=== PATIENT | female | born 1945 | race Caucasian/White ===

== ENCOUNTER 2017-12-22 18:04 | Emergency (ER) | payer OTHER, MEDICARE ==
[~2017-12-22] VITALS: Ht 162.6 cm; Wt 72.6 kg
[~2017-12-22 18:04] MED LIST: ACCUPRIL PO; AMITRIPTYLINE H10 M1 PO; ANTACID650 MG PO; ASPIRIN325 PO; COUMADIN 2 MG TA2 M1 PO; DEPAKOTE 250MG250 M1 PO; EVOXAC30 MG PO; FOLIC ACID1 MG PO; LEVOTHYROXIN0.125 M1 PO; LOPRESSOR 12.12.5 MG PO; LOPRESSOR25 PO; LOVENOX SC; SERTRALINE HCL50 MG PO; SIMVASTATIN20 MG PO; UNICOMPLEX M TA1 TA1 PO; VITAMIN D1000 UNI1 PO
[2017-12-22 18:57] LABS: HEMATOCRIT 35.6 % (37.0-47.0); HEMOGLOBIN 12.1 gm/dL (12.0-15.0); MCH 32.3 pg (26.0-34.0); MCV 95.1 fL (80.0-100.0); PLATELET COUNT 138 thou/uL (150-400); RBC 3.74 mil/uL (4.20-5.00); RDW 14.4 % (10.5-14.5); WBC 4.2 thou/uL (4.0-11.0)
[2017-12-22 19:04] LABS: CALCIUM 9.4 mg/dL (8.5-10.1); CREATININE 2.3 mg/dL (0.6-1.0)
[2017-12-22] MEDS ORDERED: KEPPRA 500 MG500 M1 PO (19:20)
[2017-12-22 19:21] LABS: ABSOLUTE NEUTROPHILS 2.1 thou/uL (1.4-8.2); ANISOCYTOSIS 2+; POLYCHROMASIA OCCASIONAL
[2017-12-22] MEDS ORDERED: LIPITOR 20 MG T20 M1 PO (19:21)
[2017-12-22] MEDS ORDERED: SODIUM BICARBO650 M3 PO (19:21)
[2017-12-22] MEDS ORDERED: ALLOPURINOL 10100 M1 PO (19:21)
[2017-12-22 20:02] VITALS: BP 144/57
[2017-12-30] MEDS ORDERED: SYNTHROID75 MCG PO (13:43)
== END 2017-12-22 20:10 | disposition home or self-care (01) ==
LOC: ER 18:04
PROVIDERS: Emergency Medicine
DX: R51 Headache (principal); I10 Essential (primary) hypertension; E03.9 Hypothyroidism, unspecified; E78.5 Hyperlipidemia, unspecified; F41.9 Anxiety disorder, unspecified; Z85.42 Personal history of malignant neoplasm of other parts of uterus; Z88.0 Allergy status to penicillin; Z88.5 Allergy status to narcotic agent; Z90.710 Acquired absence of both cervix and uterus

== ENCOUNTER → 2018-01-11 | Outpatient (CLI) | payer OTHER, MEDICARE ==
[~2018-01-11] VITALS: Ht 165.1 cm; Wt 72.6 kg
[~2018-01-11] MED LIST changes: +ALLOPURINOL 10100 M1 PO; +KEPPRA 500 MG500 M1 PO; +LIPITOR 20 MG T20 M1 PO; +SODIUM BICARBO650 M3 PO; +SYNTHROID75 MCG PO
--- NOTE | ~2018-01-11 | S ---
[facility] [place] [address] SURGICAL PATH RPT PROCEDURE Name: GODWINRAFAEL DAV Room #: REG JB LunsfordRoxannJocy.#: [id number] Admission: 01/11/18 Date of : 49 Discharge: Report #: [id number] Path Case #: [id number] PATHOLOGY REPORT COLLECTION DATE: 01/11/2018 RECEIVED DATE: 01/11/2018 SUBMITTING PHYS: Dr. Chuy Worley OTHER PHYS: Dr. Unique Romero SPECIMEN(S) RECEIVED: A.Random colon biopsies * * * * * * * * * * * * FINAL DIAGNOSIS: Large intestine mucosa, random, rule out microscopic colitis, endoscopic biopsy: - Nonspecific changes (please see comment). - Negative for active colitis, dysplasia or malignancy. (IUV:srini; 01/12/2018) COMMENT: Examination shows mild increase in lamina propria cellularity with a rare focus of cryptitis. The lamina propria is comprised of lymphocytes, plasma cells, as well as few eosinophils. Thickening of subepithelial collagen layer, or increase in intraepithelial lymphocytes is not identified. Lymphoepithelial lesions are not present. There are no crypt abscesses, granulomata, viral inclusions or parasitic organisms present as well. Overall findings are nonspecific and may be related to bowel preparation, or a resolved episode of colitis. There is no crypt loss identified as well. Findings therefore are nonspecific. Please correlate clinically and follow-up as indicated. Co-review: Dr. Darlin Rojas (hematopathologist) (IUV:srini; 01/12/2018) PATHOLOGIST: Jennifer Bello M.D. REPORT ELECTRONICALLY SIGNED BY: Jennifer Bello M.D. DATE/TIME: 01/12/2018 15:00 * * * * * * * * * * * * GROSS PATHOLOGY: Received in formalin labeled "Rafael Langford, random colon biopsies rule out microscopic colitis" and consists of 4 do tissue fragments ranging in size from 0.2 cm-0.4 cm. They are entirely submitted as A1. (HANSA; 01/11/2018) [address] [address] SURGICAL PATH RPT PROCEDURE Name: RAFAEL LANGFORD Room #: REG JB Giles#: [id number] Admission: 01/11/18 Date of : 49 Discharge: Report #: [id number] Path Case #: [id number] CLINICAL HISTORY: Change in bowel habits, family history colon cancer, hemorrhoids, diverticulosis INITIAL CPT CODE(S): A; 85431 Professional services performed by [facility] at [address], [place] [address] Technical services performed by [facility] at [address] [place] [address], [place] [address]. [facility] [address] [place] [address] PHONE: [phone] DIRECTOR: Julian Fisher M.D. * * * END OF REPORT * * *
== END | disposition home or self-care (01) ==
LOC: GI 06:55
DX: K57.30 Diverticulosis of large intestine without perforation or abscess without bleeding (principal); K64.8 Other hemorrhoids; I12.9 Hypertensive chronic kidney disease with stage 1 through stage 4 chronic kidney disease, or unspecified chronic kidney disease; N18.4 Chronic kidney disease, stage 4 (severe); I25.10 Atherosclerotic heart disease of native coronary artery without angina pectoris; E78.5 Hyperlipidemia, unspecified; E03.9 Hypothyroidism, unspecified; F41.9 Anxiety disorder, unspecified; Z79.82 Long term (current) use of aspirin; Z86.73 Personal history of transient ischemic attack (TIA), and cerebral infarction without residual deficits; Z85.42 Personal history of malignant neoplasm of other parts of uterus; Z88.0 Allergy status to penicillin; Z88.8 Allergy status to other drugs, medicaments and biological substances; Z90.710 Acquired absence of both cervix and uterus; Z98.890 Other specified postprocedural states; Z79.899 Other long term (current) drug therapy
CPT/HCPCS: 62110; 62900

== ENCOUNTER → 2018-08-06 | Outpatient (CLI) | payer OTHER, MEDICARE | LOC: MRI 13:34 | DX: I63.50 Cerebral infarction due to unspecified occlusion or stenosis of unspecified cerebral artery (principal); G31.9 Degenerative disease of nervous system, unspecified; G44.001 Cluster headache syndrome, unspecified, intractable; G62.9 Polyneuropathy, unspecified; R56.9 Unspecified convulsions ==

== ENCOUNTER 2019-07-25 18:11 | Inpatient (IN) | payer OTHER, MEDICARE ==
[~2019-07-25] VITALS: Ht 162.6 cm; Wt 70.3 kg
[2019-07-25 18:12] VITALS: BP 92/65
[2019-07-25 18:58] LABS: URINE BILIRUBIN NEGATIVE (Negative); URINE BLOOD 2+ (Negative); URINE CLARITY CLEAR; URINE COLOR YELLOW; URINE GLUCOSE-RANDOM* NEGATIVE (Negative); URINE KETONES NEGATIVE (Negative); URINE NITRITE-REFLEX NEGATIVE (Negative); URINE PROTEIN (DIPSTICK) 1+ (Negative); URINE UROBILINOGEN 0.2 E.U./dl (0.2-1.0)
[2019-07-25 18:59] LABS: URINE LEUKOCYTES-REFLEX 2+ (Negative)
[2019-07-25 19:12] LABS: BACTERIA-REFLEX None Seen /HPF (None Seen); CASTS None Seen /LPF (None Seen); CRYSTALS None Seen /LPF (None Seen); SQUAMOUS >10 Many /LPF (0-3); URINE RBC 3-10 Few /HPF (0-2); URINE WBC-REFLEX >25 Many /HPF (0-5); WBC CLUMPS Few (None Seen)
[2019-07-25 19:34] LABS: HEMATOCRIT 33.8 % (37.0-47.0); HEMOGLOBIN 11.1 gm/dL (12.0-15.0); MCH 32.2 pg (26.0-34.0); MCHC 32.7 g/dL (28.0-37.0); MCV 98.4 fL (80.0-100.0); PLATELET COUNT 178 thou/uL (150-400); RBC 3.44 mil/uL (4.20-5.00); RDW 14.6 % (10.5-14.5); WBC 9.8 thou/uL (4.0-11.0)
[2019-07-25 19:38] LABS: CALCIUM 9.5 mg/dL (8.5-10.1); CREATININE 3.6 mg/dL (0.6-1.0); POTASSIUM 4.3 mmol/L (3.5-5.1)
[2019-07-25 19:44] LABS: ALBUMIN 2.8 g/dL (3.4-5.0); TOTAL BILIRUBIN 0.5 mg/dL (<0.1-1.0); TOTAL PROTEIN 7.3 g/dL (6.4-8.2)
[2019-07-25 19:51] LABS: ABSOLUTE NEUTROPHILS 8.3 thou/uL (1.4-8.2); ANISOCYTOSIS 1+
[2019-07-25 21:31] VITALS: BP 136/59
[2019-07-25] MEDS ORDERED: TIROSINT88 MCG PO ×2 (21:34)
[2019-07-25] MEDS ORDERED: RENVELA800 MG PO ×2 (21:35)
[2019-07-25] MEDS ORDERED: NORVASC5 MG PO ×2 (21:35)
[2019-07-25] MEDS ORDERED: IRON325 PO ×2 (21:35)
[2019-07-25] MEDS ORDERED: VITAMIN B-12500 MCG PO ×2 (21:35)
[2019-07-25] MEDS ORDERED: GABAPENTIN 100100 MG PO ×2 (21:36)
--- NOTE | 2019-07-25 21:44 | NUR ---
ED CALLED TO GIVE REPORT TO INPATIENT NURSE. CIRILO STATED SHE IS NOT READY TO RECEIVE REPORT AND WILL CALL BACK IN 10 MINUTES
[2019-07-25 22:30] VITALS: BP 147/56
--- NOTE | 2019-07-26 03:33 | NUR ---
PT ARRIVED ON THE UNIT AND ORIENTED TO ROOM. DENIES PAIN, N AND V. A&OX4 AT THIS SHIFT. UP WITH SBA TO THE BATHROOM. IV INTACT IN RT A/C. CALLED ONCALL RETAIL SALES DIRECTOR AND FLUIDS STARTED. FALL PREC IN PLACE AND WILL CONT TO MONITOR TILL EOS
[2019-07-26 03:55] VITALS: BP 141/61
[2019-07-26 07:45] VITALS: BP 144/53
--- NOTE | 2019-07-26 08:01 | EKG ---
[address] [address] ELECTROCARDIOGRAM REPORT Name: RAFAEL CONNELLY Room #: 444-P ADM IN M.R.#: [id number] Admission: 07/25/19 Attend Phys: Juan Wallace MD Discharge: Date of : 49 Report #: [id number] THIS REPORT FOR: //name// [facility] ED Test Date: 2019-07-25 Test Time: 19:04:42 Pat Name: RAFAEL CONNELLY Department: Room: 444 Gender: F Database Specialist: KRISTINE : 1945 Requested By: Constantino Espinoza Order Number: [id number] MD: Duke Ellis Measurements Intervals [place] Rate: 90 P: 58 LA: 149 QRS: 38 QRSD: 92 T: 44 QT: 352 QTc: 431 Interpretive Statements Sinus rhythm Normal tracing Compared to ECG 02/09/2010 13:18:12 No significant changes Electronically Signed On 07-26-2019 8:00:59 CDT by Duke Ellis [email or web address] <ELECTRONICALLY SIGNED> By: Duke Ellis MD, [facility] 07/26/19 0800 03 03 Duke Ellis MD, [facility] /EPI
[2019-07-26 09:29] LABS: HEMATOCRIT 33.3 % (37.0-47.0); HEMOGLOBIN 10.8 gm/dL (12.0-15.0); MCH 32.2 pg (26.0-34.0); MCHC 32.5 g/dL (28.0-37.0); MCV 99.1 fL (80.0-100.0); RBC 3.36 mil/uL (4.20-5.00); RDW 14.9 % (10.5-14.5); WBC 8.4 thou/uL (4.0-11.0)
[2019-07-26 09:59] LABS: ALBUMIN 2.6 g/dL (3.4-5.0); CALCIUM 8.6 mg/dL (8.5-10.1); CREATININE 3.2 mg/dL (0.6-1.0); MAGNESIUM 2.2 mg/dL (1.8-2.4); TOTAL BILIRUBIN 0.4 mg/dL (<0.1-1.0); TOTAL PROTEIN 6.1 g/dL (6.4-8.2)
[2019-07-26 16:15] VITALS: BP 13/74
[2019-07-26 16:30] VITALS: BP 131/74
--- NOTE | 2019-07-26 16:34 | NUR ---
ASSESSMENT-PT LIVES AT HOME ALONE. SHE HAS A SON CLOSE TO [facility] AND A DTR IN [place]. 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 SHE DOES NOT DRIVE. SHE HAS A FRIEND THAT TAKES HER TO THE GROCERY STORE ON [address] AND A FRIEND OF HER SON'S THAT TRANSPORTS HER TO THE DOCTOR'S APPTS ABLE. LAUNDRY IS LOCATED IN THE BASEMENT WITH A RAIL DOWN TO HOLD ONTO. PT HAS NOT HAD ANY HH BUT HAS BEEN TO REHB HERE AND TO OUTPT THERAPY IN THE PAST. FOLLOWING TO ASSIST WITH DC PLANNING.
--- NOTE | 2019-07-26 18:25 | NUR ---
Assumed patient care at 0715. Patient is alert et oriented x's 4, is up with stand-by assist. Patient went for all walk in the hallway with CPA and with PT. Vital signs have been stable. Bruit ausculatated in left arm fistula. Patient has been compliant with her medications and treatments; she has been pleasant and cooperative. Appetite and fluid intake has been adequate. Will continue to monitor.
[2019-07-26 19:31] VITALS: BP 143/56
[2019-07-27 03:37] VITALS: BP 123/52
--- NOTE | 2019-07-27 03:39 | NUR ---
PT IS O/A X4.PT IS SBA .PT IS HARD OF HEARING.PT HAS AN AV FISTULA ON THE LT ARM.PT DENIES PAINS AND N/V.IV ACCESS ON RT HAND.STAFF CONTINUED POC TILL EOS
[2019-07-27 05:10] LABS: HEMATOCRIT 28.7 % (37.0-47.0); HEMOGLOBIN 9.5 gm/dL (12.0-15.0); MCH 32.3 pg (26.0-34.0); MCV 97.9 fL (80.0-100.0); RBC 2.93 mil/uL (4.20-5.00); RDW 14.6 % (10.5-14.5); WBC 6.6 thou/uL (4.0-11.0)
[2019-07-27 05:22] LABS: ALBUMIN 2.3 g/dL (3.4-5.0); CALCIUM 8.3 mg/dL (8.5-10.1); PHOSPHORUS 3.5 mg/dL (2.5-4.9); POTASSIUM 4.5 mmol/L (3.5-5.1)
[2019-07-27 08:17] VITALS: BP 132/63
--- NOTE | 2019-07-27 09:17 | HC ---
[facility] [place] [address] CONSULTATION Name: RAFAEL CONNELLY Room #: 444-P ADM IN M.R.#: [id number] Admission: 07/25/19 Attend Phys: Juan Wallace MD Discharge: Date of : 49 Report #: [id number] THIS REPORT FOR: //name// CC: Juan Romero REASON FOR CONSULTATION: Elevated creatinine. REASON FOR PRESENTATION: Fever. 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 She is being prepared for dialysis by her primary shotblast operator. She has an estimated GFR anywhere from 14-16 per her. She follows with ____ from another [facility]. She presented with fever that began about a week ago. This has been intermittent. She reported that her temperature was high as up as 102.2. Along with that, the patient has reported some nausea. No vomiting. She had no previous similar episodes. She had one time diarrhea. She presented for further evaluation and was found to have an elevated creatinine on her presentation. She tells me that her GFR has been in the 14-16 ratio. Most recently, her creatinine is 3.6. She does not recall her usual creatinine value, but as I have stated, the patient is known to have advanced chronic kidney disease and is being prepared for dialysis. She has a left-sided AV fistula. PAST MEDICAL HISTORY: 1. Alport syndrome. 2. End-stage renal disease. 3. Hypertension. 4. Status post left AV fistula. 5. Hysterectomy. 6. Hyperlipidemia. 7. Right corneal transplant. 8. CVA. 9. Hypothyroidism. 10. Uterine cancer. 11. Breast biopsy. 12. Lumbar diskectomy. MEDICATIONS: 1. Atorvastatin. 2. Folic acid. 3. Multivitamin. 4. Aspirin. 5. Keppra. 6. Levothyroxine. 7. Sodium bicarbonate. [facility] [address] [place] [address] CONSULTATION Name: GODWINCARLOSE DAV Room #: 444-P [facility] IN .R.#: [id number] Admission: 07/25/19 Attend Phys: Juan Wallace MD Discharge: Date of : 49 Report #: [id number] ALLERGIES: CODEINE, FLUOXETINE, PENICILLIN. FAMILY HISTORY: Her son has 2 kidney transplants due to alcohol syndrome. SOCIAL HISTORY: She denies drug or alcohol abuse. 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 REVIEW OF SYSTEMS: GENERAL: Significant for fever. CARDIOVASCULAR: No chest pain or palpitation. PULMONARY: No cough or hemoptysis. GASTROINTESTINAL: As per the history of present illness. GENITOURINARY: No frequency, no urgency. MUSCULOSKELETAL: Occasional back pain and myalgias. PHYSICAL EXAMINATION: GENERAL: The patient is alert, oriented, in no apparent distress. VITAL SIGNS: Temperature 37.6, blood pressure is 141/61. HEAD AND NECK: No jugular venous distention. CHEST: No crackles. CARDIOVASCULAR: Regular, with no rubs detected. ABDOMEN: Soft, nontender, no hepatosplenomegaly. LOWER EXTREMITIES: No edema with intact peripheral pulses. UPPER EXTREMITIES: Left AV fistula present. LABORATORY VALUES: Reviewed. Sodium is 141, creatinine is 4.3, chloride is 105, BUN is 62, creatinine is 3.6. UA with +1 protein and blood, +2 leukocyte esterase plus significant white blood cell clumps and red blood cells. ASSESSMENT AND IMPRESSION: 1. Acute kidney injury. 2. Chronic kidney disease, being prepared for dialysis. 3. Alport syndrome. 4. Potential urinary tract infection. PLAN: 1. At this point, I would continue with the IV fluid. She is known to have end-stage renal disease and is being prepared for hemodialysis. I would like to obtain her values from her shotblast operator. 2. Treat her urinary tract infections. 3. Symptomatic treatment for the nausea and fever. 4. Follow cultures and adjust antibiotic. 5. Follow urine output. 6. Avoid nephrotoxins. 7. Watch blood pressure. 8. Watch electrolytes. [address] [address] CONSULTATION Name: RAFAEL CONNELLY Room #: 444-P [facility] IN M.R.#: [id number] Admission: 07/25/19 Attend Phys: Juan Wallace MD Discharge: Date of : 49 Report #: [id number] 9. Keep on the sodium bicarbonate for now. 10. We will continue to follow during her hospital stay. <ELECTRONICALLY SIGNED> By: Carlitos Prescott MD 07/27/19 0917 0834 0011 Carlitos Prescott MD /nt
--- NOTE | 2019-07-27 15:08 | NUR ---
Assumed patient care at 0715. Patient continues to have an IV in her right forearm with NS running at 100cc/hour. Patient has been up with stand-by assist, has urinated in the toilet several times during this shift. All vital signs have been stable but, she had a Temperature of 101.0 this am. She was given Tylenol 650mg ; this was effective as Temperature was re-checked with an oral reading of 98.6. Patient has denied any symptoms with this temperature. Recieved lab results from a urine culture with the following results: Mixed urogengenital gaby greater than 100,000 colony forming units per mL. Dr Bean notified. No new orders until results from culture and sensitivity are back. Will continue to monitor.
[2019-07-27 16:47] VITALS: BP 114/45
[2019-07-27 19:49] VITALS: BP 123/54
[2019-07-28 04:52] VITALS: BP 132/54
--- NOTE | 2019-07-28 05:17 | NUR ---
ASSUMED PT CARE @19:00.PT IS O/A X4.PT IS HARD OF HEARING WITH ELIANE HEARING AIDS.PT IS UP WITH SBA.PT DENIES N/V AND PAINS.PT HAS AV FISTULA ON LT ARM.IV ACCESS ON RH.PT HAS TEMP OF 100.2 THIS AM AND WAS GIVEN TYLENOL.CONTINUE POC TILL EOS
[2019-07-28 05:41] LABS: ALBUMIN 2.3 g/dL (3.4-5.0); CALCIUM 8.6 mg/dL (8.5-10.1); CREATININE 2.6 mg/dL (0.6-1.0); PHOSPHORUS 3.4 mg/dL (2.5-4.9); POTASSIUM 4.5 mmol/L (3.5-5.1)
[2019-07-28 08:58] VITALS: BP 131/77
[2019-07-28 16:59] VITALS: BP 118/50
--- NOTE | 2019-07-28 17:05 | NUR ---
CASE DISCUSSED WITH ATTENDING DR AND ID HAS BEEN CONSULTED TO SEE RELATED TO FEVERS. FOLLOWING.
--- NOTE | 2019-07-28 18:30 | NUR ---
PT ASSESSED AT START OF SHIFT. PT DENIES PAIN. AMBULATED IN THE HALLS W/ RECORDS ADMINISTRATOR AND DID WELL. NEEDS STANDBY WHEN OUT OF BED. STILL W/ LOW GRADE TEMP. DR. MAGUIRE IN AND ORDERED CT SCAN WHICH SHOWED DIVERTICULITIS W/ ABSCESS. NOTIFIED DR. MAGUIRE AND ORDERS NOTED. PT NPO NOW AND WILL BE SEEN BY DR. MORRISSEY IN THE AM.
[2019-07-28 20:06] VITALS: BP 137/60
--- NOTE | 2019-07-29 03:55 | NUR ---
PT WAS OBSERVED SITTING UP AT EDGE OF BED AT START OF SHIFT.PT DENIED PAIN SO FAR.PT STILL NPO AT THIS TIME.CONT ON IV ABX ORDERED.UP WITH SBA TO THE BR.L ARM FISTULA POSITIVE FOR THRILL AND BRUIT.ORAL CARE GIVEN.PT ABLE TO MAKE NEEEDS KNOWN.FALL PRECAUTIONS IN PLACE,CALL LIGHT WITHIN REACH.
[2019-07-29 05:01] VITALS: BP 135/68
[2019-07-29 05:09] LABS: HEMATOCRIT 31.8 % (37.0-47.0); HEMOGLOBIN 10.6 gm/dL (12.0-15.0); MCH 32.3 pg (26.0-34.0); MCHC 33.4 g/dL (28.0-37.0); MCV 96.8 fL (80.0-100.0); RBC 3.28 mil/uL (4.20-5.00); RDW 14.2 % (10.5-14.5)
[2019-07-29 05:52] LABS: ALBUMIN 2.3 g/dL (3.4-5.0); CALCIUM 8.9 mg/dL (8.5-10.1); CREATININE 2.6 mg/dL (0.6-1.0); PHOSPHORUS 3.6 mg/dL (2.5-4.9); POTASSIUM 4.3 mmol/L (3.5-5.1)
[2019-07-29 08:55] VITALS: BP 144/66
[2019-07-29 16:36] VITALS: BP 149/71
[2019-07-29 19:22] VITALS: BP 127/65
--- NOTE | 2019-07-29 19:31 | NUR ---
Assumed patient care at 0715. Patient has been NPO pending decision regarding how to address Diverticulitis with Abcess. Dr Mobley came to visit, told this nurse and patient that she can go on full liquids, to advance to solids as tolerated tomorrow. Patient's vital signs have been stable, LSCTA, BS x's 4 (she has had two "normal" bowel movements today, therefore she refused her 1500 Miralax). Patient has a new IV in the right wrist, as the previous IV went bad. Report given to Mary, on-coming RN. Patient has been tolerated fluids well.
--- NOTE | 2019-07-30 03:08 | NUR ---
ASSUMED CARE @1900 PT ASSESSED AT START SHIFT DENIES PAIN. IV INTACT IN RT HAND AND ABX INFUSING. PT UP WITH SBA TO THE BR. PT TEMP OF 99.9 TYLENOL GIVEN FOR LOW GRADE TEMP AND TEMP BACK TO 99.4. [facility] AND HAS HEARING AID. FALL PREC IN PLACE AND WILL CONT WITH POC TILL EOS
[2019-07-30 04:32] VITALS: BP 137/68
[2019-07-30 05:53] LABS: ALBUMIN 2.1 g/dL (3.4-5.0); CALCIUM 8.5 mg/dL (8.5-10.1); CREATININE 2.6 mg/dL (0.6-1.0); PHOSPHORUS 3.5 mg/dL (2.5-4.9); POTASSIUM 4.3 mmol/L (3.5-5.1)
[2019-07-30 08:15] VITALS: BP 143/76
[2019-07-30 16:00] VITALS: BP 124/61
--- NOTE | 2019-07-30 18:02 | NUR ---
Assessment completed.vss.pt in and out of bed to chair and bathroom with sba. Pt temp was elevated early this am and tylenol given as ordered with relief. Dr Bey and Sada here,no new order noted but Maida said pt was okay to dc home from his own stand point.Pt tolerated full liq and has moderate stool today.Will continue to monitor.
[2019-07-30 21:15] VITALS: BP 134/64
--- NOTE | 2019-07-31 00:22 | NUR ---
ASSUMED CARE OF PT @1900 PT ASSESSED AT START OF SHIFT A&OX4. ORAL TEMP OF 100 NOTED ADMINISTERED TYELNOL AND TEMP DOWN TO 99.4 WILL CONT TO MONITOR TEMP. PT STILL ON A FULL LIQUID DIET TOLERATED IT WELL AND WANTS TO KNOW WHEN DIET WILL BE ADVANCED. NEW ORDER PLACE TO ADVANCED DIET IN THE AM. UP WITH SBA TO THE BATHROOM. FALL PREC IN PLACE AND CALL LIGHT WITHIN REACH WILL CONT WITH POC TILL EOS.
[2019-07-31 05:00] VITALS: BP 128/59
[2019-07-31 06:04] LABS: ALBUMIN 2.3 g/dL (3.4-5.0); CALCIUM 8.4 mg/dL (8.5-10.1); CREATININE 2.5 mg/dL (0.6-1.0); PHOSPHORUS 3.6 mg/dL (2.5-4.9); POTASSIUM 4.4 mmol/L (3.5-5.1)
[2019-07-31 07:30] VITALS: BP 142/68
[2019-07-31 15:26] VITALS: BP 109/62
--- NOTE | 2019-07-31 15:51 | NUR ---
ASSUMED CARE OF PT AT SHIFT CHANGE. ASSESSMENT CHARTED. MEDS GIVEN PER DEC. PT ALERT AND ORIENTED, DENIES PAIN. UP SBA TO BATHROOM TOLERATING WELL. O2 SATS WNL ON ROOM AIR. DENIES ABDOMINAL PAIN WHEN ASKED/ASSESSED. PT EXPRESSING THAT SHE FEELS READY TO GO HOME. IV ABX ADMINISTERED AT CHARTED. APPETITE ADEQUATE, VSS WITH NO FEVER THROUGHOUT DAY. PLAN IS TO DC WHEN ID CHANGES IV ABX TO PO AND WHEN ALL CONSULTED PHYSICIANS SIGN OFF ACCORDING TO DR DUENAS. PT DENIES NEEDS AT THIS TIME. WILL CONT TO MONITOR AND FOLLOW POC.
[2019-07-31 19:09] VITALS: BP 126/59
[2019-08-01 07:15] VITALS: BP 135/64
--- NOTE | 2019-08-01 07:41 | NUR ---
PT AMBULATING TO BATHROOM WITH STANDBY ASSIST AND IS TOLERATING WELL. DENIES PAIN. POSSIBLE DISCHARGE HOME 08/01. RESTING COMFORTABLY. NO NEEDS VOICED. CALL LIGHT WITHIN REACH. WILL CONTINUE TO PROVIDE FREQUENT OBSERVATION.
[2019-08-01] MEDS ORDERED: CIPRO250 M2 PO ×3 (11:37)
[2019-08-01] MEDS ORDERED: FLAGYL 250 MG250 MG PO ×3 (11:38)
--- NOTE | 2019-08-01 14:30 | HC ---
[facility] [place] [address] CONSULTATION Name: RAFAEL CONNELLY Room #: 444-P ADM IN M.R.#: [id number] Admission: 07/25/19 Attend Phys: Juan aWllace MD Discharge: Date of : 49 Report #: [id number] THIS REPORT FOR: //name// CC: Juan Romero DATE OF SERVICE: 07/28/2019 INFECTIOUS DISEASE CONSULTATION REASON FOR CONSULTATION: I was asked to evaluate concerning fever. HISTORY OF PRESENT ILLNESS: The patient is a 74-year-old, who was admitted with fever, chills and abdominal discomfort. A week prior to this, she had been constipated. She took Dulcolax and noticed resolution of her constipation with onset of diarrhea. Along with this, she has had poor appetite. More lethargic and general weakness. Day before admission started having temperature up to 102 degrees with chills. She has longstanding chronic kidney disease. She has a left AV fistula that was placed last year. It has been asymptomatic. She has had good urine output. She denies any blood in her urine, previous issues with diverticular disease or inflammatory bowel disease. No history of cancer. She also has peripheral neuropathy and has been on gabapentin. Denies any headache or change in mental status. There has been no cough or sputum production. No rashes. REVIEW OF SYSTEMS: A 10-point review of system was negative other than what has been described above. She denies any back or flank pain. Denies any hip pain. ALLERGIES: CODEINE, AMITRIPTYLINE, FLUOXETINE, PENICILLIN. She does tolerate cephalosporins. MEDICATIONS: As noted on her MAR including Lipitor, levothyroxine, Norvasc, iron, vitamin B12, Renvela, Neurontin, folic acid, multivitamin, aspirin, metoprolol, Keppra, allopurinol, sodium bicarbonate. Since her admission, she has been on ceftriaxone. PAST MEDICAL HISTORY: Hysterectomy, lumbar diskectomy, Sjogren syndrome, left benign breast disease, uterine cancer remotely, stage 4 kidney disease, left great toenail removed, anxiety disorder, hypothyroidism, hyperlipidemia, stroke with residual right hand weakness, bilateral cataract surgery, right corneal transplant, oral surgery with full mouth extraction, left AV fistula, seizure after her stroke. FAMILY HISTORY: Noncontributory. SOCIAL HISTORY: Nonsmoker, no significant alcohol intake. [address] [address] CONSULTATION Name: RAFAEL CONNELLY DAV Room #: 444-P [facility] IN .R.#: [id number] Admission: 07/25/19 Attend Phys: Juan Wallace MD Discharge: Date of : 49 Report #: [id number] PHYSICAL EXAMINATION: VITAL SIGNS: She was afebrile and hemodynamically stable. GENERAL: She was alert and cooperative and pleasant, sitting up in bed. SKIN: Without rash or decubitus. MOUTH: Without mucositis. NECK: Supple. No palpable adenopathy. CHEST: Clear. HEART: Regular, without murmur, gallop or rub. ABDOMEN: Soft, mild tenderness in the left lower quadrant. There is no CVA tenderness. She had no masses or hepatosplenomegaly. Left hip range of motion was good. GENITORECTAL: Not performed. EXTREMITIES: Without clubbing, cyanosis or edema. NEUROLOGIC: Cranial nerves intact. Strength in the upper and lower extremities was normal. Sensation upper and lower extremities normal. Mood was normal. Affect normal. LABORATORY STUDIES: Hemoglobin 9.5, WBC 6.6, platelet count 160,000. On admission, her differential shows 83% segs, 2% bands. Sodium 144, potassium 4.5, bicarbonate 21, creatinine 2.6. Liver function tests, bilirubin 0.4, AST 26, ALT 17, alkaline phosphatase 131. Urinalysis with 1+ protein, 2+ blood, many wbc's, no bacteria. Blood and urine cultures pending. IMPRESSION AND PLAN: A 74-year-old with chronic kidney disease, presents with fever. Considerations would include colonic source noting that she had constipation and now left lower quadrant discomfort. Most likely would be diverticular disease versus possible ischemic colitis. Urinary tract infection possible, although she had no bacteriuria. Occult bacteremia or abscess, viral process, malignancy or vasculitis also considered. No evidence of AV fistula, infection or opportunistic infection. Drug fever would also be considered. Alport syndrome with chronic kidney disease. RECOMMENDATIONS: We will continue broad antibiotic coverage including aerobic and anaerobic coverage. Await blood cultures and urine culture results. We will obtain CT scan of the abdomen and pelvis without contrast due to her kidney disease. Make further recommendations following these studies. <ELECTRONICALLY SIGNED> By: Jonathon Reno MD 08/01/19 1430 2157 1841 Jonathon Reno MD /nt
[2019-08-01 14:40] VITALS: BP 135/64
--- NOTE | 2019-08-01 21:26 | NUR ---
PATIENT ALERT AND ORIENTED. DISCHARGED IN STABLE CONDITION WITH DISCHARGE INSTRUCTIONS, PRESCRITIONS, ALL PERSONAL BELONGINGS VIA WHEELCHAIR BY CAR DRIVEN BY FAMILY MEMBER TO HER HOME.
== END 2019-08-01 15:24 | disposition home or self-care (01) | DRG 871 ==
LOC: ER 18:11 → EROBS 21:09 → 4S 21:09 → ENTRNSPT 08-01 14:56 → EDTRNSPTSTS 08-01 14:59 → 4S 08-01 15:24
PROVIDERS: Emergency Medicine; Hospitalist; Internal Medicine; ADMIT Internal Medicine
DX: A41.9 Sepsis, unspecified organism (principal); K57.81 Diverticulitis of intestine, part unspecified, with perforation and abscess with bleeding; E43 Unspecified severe protein-calorie malnutrition; N39.0 Urinary tract infection, site not specified; N17.9 Acute kidney failure, unspecified; I12.0 Hypertensive chronic kidney disease with stage 5 chronic kidney disease or end stage renal disease; E46 Unspecified protein-calorie malnutrition; I69.351 Hemiplegia and hemiparesis following cerebral infarction affecting right dominant side; Q87.81 Alport syndrome; N18.4 Chronic kidney disease, stage 4 (severe); M35.00 Sjogren syndrome, unspecified; F41.9 Anxiety disorder, unspecified; E03.9 Hypothyroidism, unspecified; D63.1 Anemia in chronic kidney disease; E78.5 Hyperlipidemia, unspecified; Z88.0 Allergy status to penicillin; Z88.1 Allergy status to other antibiotic agents; Z88.8 Allergy status to other drugs, medicaments and biological substances; Z79.899 Other long term (current) drug therapy; Z79.82 Long term (current) use of aspirin; Z90.710 Acquired absence of both cervix and uterus; Z85.42 Personal history of malignant neoplasm of other parts of uterus; Z98.42 Cataract extraction status, left eye; Z98.41 Cataract extraction status, right eye; Z94.7 Corneal transplant status; Z84.1 Family history of disorders of kidney and ureter; Z68.26 Body mass index [BMI] 26.0-26.9, adult
CPT/HCPCS: 10195

== ENCOUNTER 2019-08-03 20:29 | Emergency (ER) | payer OTHER, MEDICARE ==
[~2019-08-03] VITALS: Ht 162.6 cm; Wt 69.4 kg
[~2019-08-03 20:29] MED LIST changes: +CIPRO250 M2 PO; +FLAGYL 250 MG250 MG PO; +GABAPENTIN 100100 MG PO; +IRON325 PO; +NORVASC5 MG PO; +RENVELA800 MG PO; +TIROSINT88 MCG PO; +VITAMIN B-12500 MCG PO
[2019-08-03] MEDS ORDERED: PEPCID20 MG PO ×5 (21:41→23:07)
[2019-08-03] MEDS ORDERED: PREDNISONE 20 M20 MG PO ×5 (21:41→23:07)
[2019-08-03 22:59] VITALS: BP 141/63
== END 2019-08-03 23:00 | disposition home or self-care (01) ==
LOC: ER 20:29
DX: L50.0 Allergic urticaria (principal); K57.80 Diverticulitis of intestine, part unspecified, with perforation and abscess without bleeding; E03.9 Hypothyroidism, unspecified; F41.9 Anxiety disorder, unspecified; N18.4 Chronic kidney disease, stage 4 (severe); M35.00 Sjogren syndrome, unspecified; Z90.710 Acquired absence of both cervix and uterus; Z85.42 Personal history of malignant neoplasm of other parts of uterus; Z98.890 Other specified postprocedural states; Z98.41 Cataract extraction status, right eye; Z86.73 Personal history of transient ischemic attack (TIA), and cerebral infarction without residual deficits; Z88.5 Allergy status to narcotic agent; Z88.1 Allergy status to other antibiotic agents; Z88.0 Allergy status to penicillin; Z88.6 Allergy status to analgesic agent

== ENCOUNTER → 2019-08-05 | Outpatient (CLI) | payer OTHER, MEDICARE ==
[~2019-08-05] MED LIST changes: +KAPSPARGO SPRIN25 MG PO; +MEROPENEM500 MG IV; +METOPROLOL SUCC50 MG PO; +MIRALAX17 GM PO; +NORVASC 2.5 MG2.5 M1 PO; +OXYCODONE HCL10 MG PO; +OXYCODONE HCL5 M1 PO; +PEPCID20 MG PO; +PREDNISONE 20 M20 MG PO; +PROBIOTIC1 EAC1 PO; +TYLENOL325 MG PO; +VELTASSA8.4 GM PO
[2019-08-05 12:50] VITALS: BP 118/53
[2019-08-05 13:40] VITALS: BP 118/53
--- NOTE | 2019-08-05 13:40 | NUR ---
HERE FOR 1ST MEROPENEM INFUSION WITH 2 WEEK PLANNED THERAPY PER PT. PERIPHERAL LINE PLACED ORDERED. MEROPENEM INFUSED AND WATCHED PT FOR 35 MINUTES POST SHE DEVELOPED HIVES ON ORAL TREATMENT AT HOME--STATES NOT SURE IF THIS WAS FROM CIPRO OR FLAGYL. NO S/S REACTION. PT TEACHING DONE REGARDING PLAN OF CARE, NEED TO REPORT TO THE ED ON THE WEEKEND FOR INFUSIONS AND RETURN HERE AGAIN ON THURSDAY. PT STATES SHE UNDERSTOOD DR. MAGUIRE TO SAY THAT SHE WILL NEED TO HAVE A CT OF HER ABD AND CONSULT WITH CRISTY MAGDALENO. CALLED EM WITH DR. MAGUIRE WHO SAID SHE IS WORKING ON SETTING THESE UP BUT THEY WOULD NOT BE EARLY NEXT WEEK. PT VERBALIZED UNDERSTANDING OF PLAN. SALINE LOCK LEFT IN PLACE FOR INFUSION TOMORROW. DISMISSED WITH FRIEND IN STABLE CONDITION.
== END ==
LOC: OPONC 09:10
DX: K57.80 Diverticulitis of intestine, part unspecified, with perforation and abscess without bleeding (principal)
CPT/HCPCS: 95000

== ENCOUNTER → 2019-08-06 | Outpatient (CLI) | payer OTHER, MEDICARE | LOC: OPONC | DX: K57.80 Diverticulitis of intestine, part unspecified, with perforation and abscess without bleeding (principal) | CPT/HCPCS: 95000 ==

== ENCOUNTER → 2019-08-07 | Outpatient (CLI) | payer OTHER, MEDICARE | LOC: OPONC | DX: K57.80 Diverticulitis of intestine, part unspecified, with perforation and abscess without bleeding (principal) | CPT/HCPCS: 95000 ==

== ENCOUNTER → 2019-08-08 | Outpatient (CLI) | payer OTHER, MEDICARE ==
[2019-08-08 14:24] VITALS: BP 136/57
--- NOTE | 2019-08-08 14:58 | NUR ---
IN FOR DAILY MEROPENEM INFUSION. DENIED PAIN, N/V, FEVER, CHILLS, DIARRHEA. STATED STILL HAS A LITTLE RASH FROM ANTIBIOTIC GIVEN WHILE IN HOSPITAL. NOT SURE IF THIS WAS A REACTION TO CIPRO OR FLAGYL. PATIENT IS NO LONGER TAKING THESE MEDS. TOLERATED INFUSION WITHOUT INCIDENT. PERIPHERAL IV IN RT FOREARM PATENT WITH NO REDNESS, PAIN OR EDEMA. ADMISSION HISTORY AND ASSESSMENT COMPLETED. TO RETURN TOMORROW FOR NEXT INFUSION. DISMISSED IN STABLE CONDITION.
== END ==
LOC: OPONC 01:23
DX: K57.80 Diverticulitis of intestine, part unspecified, with perforation and abscess without bleeding (principal)
CPT/HCPCS: 95000

== ENCOUNTER → 2019-08-09 | Outpatient (CLI) | payer OTHER, MEDICARE ==
[2019-08-09 15:31] VITALS: BP 142/63
--- NOTE | 2019-08-09 15:35 | NUR ---
IN FOR DAILY MEROPENEM INFUSION. STATED FEELING CONSTIPATED. DENIED FEVER/CHILLS, DIARRHEA, N/V, PAIN. TOLERATED INFUSION WITHOUT INCIDENT. IV STARTED LEAKING AT THE END OF INFUSION SO REMOVED. TO RETURN TOMORROW FOR NEXT INFUSION. DISMISSED IN STABLE CONDITION. TO HAVE A CT SCAN PRIOR TO TOMORROW'S INFUSION.
== END ==
LOC: OPONC 09:11
DX: K57.80 Diverticulitis of intestine, part unspecified, with perforation and abscess without bleeding (principal)
CPT/HCPCS: 95000

== ENCOUNTER 2019-08-10 15:14 | Inpatient (IN) | payer OTHER, MEDICARE ==
[~2019-08-10] VITALS: Ht 152.4 cm; Wt 69.4 kg
[~2019-08-10 15:14] MED LIST changes: -KAPSPARGO SPRIN25 MG PO; -MEROPENEM500 MG IV; -METOPROLOL SUCC50 MG PO; -MIRALAX17 GM PO; -NORVASC 2.5 MG2.5 M1 PO; -OXYCODONE HCL10 MG PO; -OXYCODONE HCL5 M1 PO; -PROBIOTIC1 EAC1 PO; -TYLENOL325 MG PO; -VELTASSA8.4 GM PO
[2019-08-10 15:33] LABS: HEMATOCRIT 34.8 % (37.0-47.0); HEMOGLOBIN 11.2 gm/dL (12.0-15.0); MCH 31.7 pg (26.0-34.0); MCHC 32.3 g/dL (28.0-37.0); MCV 98.4 fL (80.0-100.0); PLATELET COUNT 197 thou/uL (150-400); RBC 3.53 mil/uL (4.20-5.00); RDW 15.2 % (10.5-14.5)
[2019-08-10 15:45] LABS: ANION GAP 8 mmol/L (7-16); BUN 68 mg/dL (7-18); CALCIUM 8.8 mg/dL (8.5-10.1); CHLORIDE 109 mmol/L (98-107); CO2 24 mmol/L (21-32); CREATININE 2.4 mg/dL (0.6-1.0); GLUCOSE 81 mg/dL (74-106); POTASSIUM 5.1 mmol/L (3.5-5.1); SODIUM 141 mmol/L (136-145)
[2019-08-10 15:55] LABS: ALBUMIN 2.6 g/dL (3.4-5.0); LIPASE 652 U/L (73-393); SGOT 39 U/L (15-37); SGPT 41 U/L (30-65); TOTAL BILIRUBIN 0.5 mg/dL (<0.1-1.0); TOTAL PROTEIN 6.5 g/dL (6.4-8.2); TROPONIN-I <0.06 ng/mL (<0.06)
[2019-08-10 16:11] LABS: ABSOLUTE NEUTROPHILS 10.7 thou/uL (1.4-8.2); NUCLEATED RBCS 2 /100WBC; PLATELET ESTIMATE NORMAL
[2019-08-10] MEDS ORDERED: KAPSPARGO SPRIN25 MG PO (23:56)
[2019-08-10] MEDS ORDERED: NORVASC 2.5 MG2.5 M1 PO (23:57)
[2019-08-10] MEDS ORDERED: SODIUM BICARBO650 M3 PO (23:59)
[2019-08-11 01:04] VITALS: BP 131/64
[2019-08-11 04:01] VITALS: BP 140/73
--- NOTE | 2019-08-11 05:21 | NUR ---
PT ARRIVED UNIT AT 22:45 FROM SURGERY.PT HAD AN EXPLORATORY LAPAROTOMY,OPEN SIGMOIDECTOMY AND CREATION OF COLOSTOMY DONE.PT HAS A SYLVIA DRAINAGE BAG,COLOSTOMY AND MIDLINE PREVENA .PT HAS A WAGGONER CATHETER INPLACE.2 IV ACCESS ON RH AND AVA.PT HAS A LIMP ALERT ON THE LEFT HAND.PT HAS A PATENT AV FISTULA ON THE LEFT ARM BUT NOT ON DIALYSIS.PT IS ON 0.9%NS AT 100ML/HR.PT IS CREEK AND HAS ELIANE HEARING AIDS.FALL PREC IN PLACE.PT IS ON TYLENOL,DILAUID AND OXYCODONE FOR PAIN MGT.MONITOR TILL EOS.
[2019-08-11 05:37] LABS: WBC 11.6 thou/uL (4.0-11.0)
[2019-08-11 05:39] LABS: ABSOLUTE NEUTROPHILS 10.6 thou/uL (1.4-8.2); BASOPHILS 0.4 % (0.0-2.0); HEMATOCRIT 30.6 % (37.0-47.0); HEMOGLOBIN 10.2 gm/dL (12.0-15.0); LYMPHOCYTES 3.5 % (24.0-44.0); MCH 32.6 pg (26.0-34.0); MCHC 33.1 g/dL (28.0-37.0); MCV 98.5 fL (80.0-100.0); MONOCYTES 4.8 % (1.0-8.0); PLATELET COUNT 170 thou/uL (150-400); POLYS 91.3 % (36.0-66.0); RBC 3.11 mil/uL (4.20-5.00); RDW 15.3 % (10.5-14.5)
[2019-08-11 05:58] LABS: CALCIUM 7.9 mg/dL (8.5-10.1); CREATININE 2.6 mg/dL (0.6-1.0); MAGNESIUM 2.5 mg/dL (1.8-2.4)
[2019-08-11 06:00] LABS: POTASSIUM 6.6 mmol/L (3.5-5.1)
--- NOTE | 2019-08-11 07:47 | NUR ---
PT POTASSIUM RESULT WAS 6.6 THSI AM.RESULTS REPORT AND RAMIREZ GAVE PHONE OTHER FOR TREATMENT FOR HYPERKALEMIA AND LAB ORDERS PUT IN FOR RECHECK IN 2HRS PUT IN.
--- NOTE | 2019-08-11 07:50 | EKG ---
[address] [address] ELECTROCARDIOGRAM REPORT Name: RAFAEL CONNELLY Room #: 464-P ADM IN M.R.#: [id number] Admission: 08/10/19 Attend Phys: Will Bean MD Discharge: Date of : 49 Report #: [id number] THIS REPORT FOR: //name// [facility] ED Test Date: 2019-08-10 Test Time: 17:57:07 Pat Name: RAFAEL CONNELLY Department: Room: 464 Gender: F Shank Taper: jenny : 1945 Requested By: Nel Saucedo Order Number: [id number] MD: Ralph Hill Measurements Intervals [place] Rate: 101 P: 51 NV: 123 QRS: 26 QRSD: 86 T: 38 QT: 304 QTc: 394 Interpretive Statements Sinus tachycardia Abnormal R-wave progression, early transition Compared to ECG 07/25/2019 19:04:42 Sinus rhythm no longer present Electronically Signed On 08-11-2019 7:49:58 CDT by Ralph Hill [email or web address] <ELECTRONICALLY SIGNED> By: Ralph Hill MD 08/11/19 0749 56 56 Ralph Hill MD /EPI
[2019-08-11 08:45] VITALS: BP 138/69
--- NOTE | 2019-08-11 09:05 | NUR ---
ORDERS FOR PT EVAL AND TREAT RECEIVED PRIOR TO Pt UNDERGOING EX LAP WITH NEW COLOSTOMY. WILL NEED NEW PT ORDERS PRIOR TO INITIATING PT INTERVENTIONS.
--- NOTE | 2019-08-11 14:01 | NUR ---
PT ADMITTED RELATED TO ACUTE ABDOMINAL PAIN,DIVERTICULAR DIURTICULAR RUPTURE AB. CM REVIEWED CHART AND SPOKE WITH CARE TEAM. CM MET WITH PT AT BEDSIDE THIS DAY. PT IS A&O X4. CM ROLE INTRODUCED. PT INDICATED SHE LIVES ALONE IN A HOSUE WITH 10 STEPS TO ENTER THROUGH THE GARAGE AND 3-4 TO BEDROOM INSIDE. PT INDICATED SHE HAD BEEN INDEPENDENT WITH GAIT AND ADLS. PT INDICATED NO HH HX. PT INDICATED SHE HAD BEEN COMING TO THE [facility] DAY FOR IV MEROPENEM SINCE LAST THURSDAY. PT DOESN'T DRIVE SHE HAD BEEN TRANSPORTED VIA [facility]. PT INDICATED THAT HER PCP IS LELAND PENALOZA. PT INIDCATED SHE HOPES TO BE ABLE TO DC HOME ONCE MEDICALLY STABLE. CM TO FOLLOW INDICATED WITH DC PLANNING.
[2019-08-11 14:14] VITALS: BP 126/58
[2019-08-11 19:48] VITALS: BP 162/66
--- NOTE | 2019-08-11 21:38 | NUR ---
PT A&OX4, VSS, PAIN IN ABDOMEN. PATIENT HAS SEROSANGUINOUS VERY SCANT IN COLOSTOMY. SYLVIA DRAIN MONITORED AND PREVENA DRESSING IN TACT. ABD SOFT BOWELS ACTIVE. PATIENT WAGGONER PATENT, NO SIGNS OF DISTRESS, WILL CONTINUE TO MONITOR.
[2019-08-12 03:38] VITALS: BP 139/59
[2019-08-12 05:51] LABS: HEMATOCRIT 24.5 % (37.0-47.0); MCH 32.5 pg (26.0-34.0); MCHC 33.1 g/dL (28.0-37.0); MCV 98.1 fL (80.0-100.0); RBC 2.5 mil/uL (4.20-5.00); RDW 15.6 % (10.5-14.5); WBC 9.3 thou/uL (4.0-11.0)
[2019-08-12 06:06] LABS: HEMOGLOBIN 8.1 gm/dL (12.0-15.0)
[2019-08-12 06:14] LABS: ALBUMIN 1.5 g/dL (3.4-5.0); CALCIUM 8.1 mg/dL (8.5-10.1); CREATININE 2.8 mg/dL (0.6-1.0); PHOSPHORUS 4.8 mg/dL (2.5-4.9); POTASSIUM 5.8 mmol/L (3.5-5.1)
[2019-08-12 08:00] VITALS: BP 134/63
--- NOTE | 2019-08-12 11:51 | NUR ---
OSTOMY CARE; pouch intact, no stool yet, small amt serous red drainage, stoma budded, red viable, prevena vac in place midline abd incision, good seal noted, up in chair, alert and oriented x4, education on ostomy care/management,very receptive, information left a bs, will cont to follow, medical staff director informed
[2019-08-12 15:00] VITALS: BP 139/65
--- NOTE | 2019-08-12 18:26 | NUR ---
Assumed patient care at 0715. Patent's vital signs have been stable. She has had 300cc serosanginious drained fron J-P Drain. Catheter was removed with a total of 1400cc urine during this shift. Last blood sugar was 76 at approximately 1650. Patient has been drinking orange juice, sprite, ice water. She has had sugar free jello as well. Patient has voiced no concerns of pain. IV in right hand is patent. IV in right anticubital went bad. Will continue to monitor.
[2019-08-12 20:38] VITALS: BP 159/65
[2019-08-12 23:05] LABS: URINE BILIRUBIN NEGATIVE (Negative); URINE BLOOD 1+ (Negative); URINE CLARITY CLEAR; URINE COLOR YELLOW; URINE GLUCOSE-RANDOM* NEGATIVE (Negative); URINE KETONES NEGATIVE (Negative); URINE LEUKOCYTES-REFLEX NEGATIVE (Negative); URINE NITRITE-REFLEX NEGATIVE (Negative); URINE PROTEIN (DIPSTICK) 1+ (Negative); URINE UROBILINOGEN 0.2 E.U./dl (0.2-1.0)
[2019-08-12 23:51] LABS: SQUAMOUS None Seen /LPF (0-3); URINE RBC 0-2 Rare /HPF (0-2); URINE WBC-REFLEX None Seen /HPF (0-5)
[2019-08-12 23:52] LABS: BACTERIA-REFLEX None Seen /HPF (None Seen); CASTS None Seen /LPF (None Seen); MUCUS None Seen strn/LPF (None Seen); YEAST-REFLEX Present (None Seen)
[2019-08-13 07:57] LABS: ALBUMIN 1.7 g/dL (3.4-5.0); CALCIUM 8.2 mg/dL (8.5-10.1); CREATININE 2.6 mg/dL (0.6-1.0); PHOSPHORUS 3.4 mg/dL (2.5-4.9); POTASSIUM 5.5 mmol/L (3.5-5.1)
[2019-08-13 08:00] VITALS: BP 155/84
--- NOTE | 2019-08-13 08:29 | NUR ---
progress pt a/o x 4 lungs clear abdomen soft with active bs, colostomy with pink moist stoma, no stool in bag, lam drain intact drained 140 cc's overnight. ivf's infusing as ordered voiding qs incontinent of a large amount of urine during sleep x1. incision to midline abdomen covered with intact working provena dressing. continue poc.
[2019-08-13 15:00] VITALS: BP 148/88
--- NOTE | 2019-08-13 17:16 | NUR ---
ASSUMED PT CARE AT 7AM.ASSESSMENT COMPLETED.VSS.PT IN AND OUT OF BED FOR ACTIVITIES.GOOD ENDURANCE NOTED.PT TOLERATED MEDS AND DIET.DR CREWS AND ADY HERE,NO NEW ORDER NOTED.NO VERBAL C/O AND PT CONTINUES TO GET BETTER. WILL CONTINUE TO MONITOR.
[2019-08-13 20:30] VITALS: BP 156/62
[2019-08-14 05:03] LABS: ALBUMIN 1.5 g/dL (3.4-5.0); CALCIUM 7.9 mg/dL (8.5-10.1); CREATININE 2.4 mg/dL (0.6-1.0); PHOSPHORUS 3.4 mg/dL (2.5-4.9)
[2019-08-14 05:07] LABS: POTASSIUM 6.1 mmol/L (3.5-5.1)
[2019-08-14 08:03] VITALS: BP 135/54
--- NOTE | 2019-08-14 09:33 | NUR ---
PROGRESS PT A/O X 4 RATES PAIN A 2 TO 4 TAKING SCHEDULED TYLENOL WITH EFFECT. LUNGS CLEAR ABDOMEN SLIGHTLY FIRM WITH ACTIVE BS, COLOSTOMY WITH PINK MOIST STOMA DARK THIN BLOODY DRAINAGE NO STOOL OR FLATUS NOTED. VOIDING QS, CREATININE 6.[address] LITTLE=BSI NOTIFIED ORDERED AN AMP OF D50, 10 UNITS OF REGULAR INSULIN IVP,AND A 10 MG ALBUTEROL BREATHING TREATMENT ALL GIVEN ORDERED. TO BE RECHECKED ON 08/15 RAMIREZ ANGULOP ALSO NOTIFIED OF LAB AND OF REPORT TO PT UP WITH SBA
[2019-08-14 14:37] VITALS: BP 153/68
--- NOTE | 2019-08-14 19:37 | NUR ---
Assumed pt care at 7am.Assessment completed.vss.Pt in bed for all meals.Fair appetite.Pt K+ was 6.1 early this shift and order received by noc rn and already taking care of before the start of shift.Around 1430,pt called for assist to bathroom.After cleaning up in the bathroom and returning to bed,pt c/o dizziness and feels like passing out.Blood sugar was 95. Vs taken was wnl. Pt reported feeling better after taking back to bed with wc.Will continue to monitor.
[2019-08-14 19:50] VITALS: BP 148/64
[2019-08-14 20:30] LABS: HEMATOCRIT 25.5 % (37.0-47.0); HEMOGLOBIN 8.4 gm/dL (12.0-15.0); MCH 32.2 pg (26.0-34.0); MCHC 32.9 g/dL (28.0-37.0); MCV 98.1 fL (80.0-100.0); RBC 2.6 mil/uL (4.20-5.00); WBC 8.8 thou/uL (4.0-11.0)
[2019-08-14 20:39] LABS: CREATININE 2.3 mg/dL (0.6-1.0); MAGNESIUM 1.8 mg/dL (1.8-2.4); POTASSIUM 5.6 mmol/L (3.5-5.1)
[2019-08-15 04:07] LABS: HEMATOCRIT 24.9 % (37.0-47.0); HEMOGLOBIN 8.1 gm/dL (12.0-15.0); MCH 31.7 pg (26.0-34.0); MCHC 32.4 g/dL (28.0-37.0); MCV 97.9 fL (80.0-100.0); RBC 2.54 mil/uL (4.20-5.00); RDW 15.9 % (10.5-14.5); WBC 8.8 thou/uL (4.0-11.0)
[2019-08-15 04:23] LABS: ALBUMIN 1.4 g/dL (3.4-5.0); CALCIUM 7.9 mg/dL (8.5-10.1); CREATININE 2.2 mg/dL (0.6-1.0); MAGNESIUM 1.7 mg/dL (1.8-2.4); PHOSPHORUS 3.6 mg/dL (2.5-4.9); POTASSIUM 5.7 mmol/L (3.5-5.1)
--- NOTE | 2019-08-15 05:25 | NUR ---
Pt. rested quietly at intervals during the night when checked on during frequent rounds. She c/o very mild pain to her abdomen and scheduled tylenol given (see emar) with some relief. Incontinent of urine and neetu care given. Dressing to her abdomen is dry. Colostomy is intact with small amount of brownish colored blood. Small amount of hard stool also present. Bed alarm is on.
[2019-08-15 08:00] VITALS: BP 160/66
--- NOTE | 2019-08-15 10:14 | O ---
[address] [address] OPERATIVE REPORT Name: RAFAEL CONNELLY Room #: 464-P ADM IN M.R.#: [id number] Admission: 08/10/19 Attend Phys: Will Bean MD Discharge: Date of : 49 Report #: [id number] THIS REPORT FOR: //name// CC: Will Reno DATE OF SERVICE: 08/10/2019 PROCEDURE PERFORMED: 1. Exploratory laparotomy. 2. Open sigmoidectomy. 3. Creation of end colostomy. PREOPERATIVE DIAGNOSES: 1. Acute abdomen. 2. Perforated diverticulitis. 3. Pneumoperitoneum. 4. Intra-abdominal abscesses. POSTPROCEDURE DIAGNOSES: 1. Acute abdomen. 2. Perforated diverticulitis. 3. Pneumoperitoneum. 4. Intra-abdominal abscesses. 5. Purulent peritonitis. SURGEON: Malik Osborn MD ASSISTANTS: None. ANESTHESIA: General. ESTIMATED BLOOD LOSS: 200 mL COMPLICATIONS: None. SPECIMENS: Sigmoid colon. INDICATIONS FOR PROCEDURE: The patient is a very pleasant 74-year-old female who I know well from a recent hospitalization for perforated diverticulitis. The patient at that time had Hinchey 1 diverticulitis and was managed conservatively. She had been receiving outpatient antibiotics and had worsening pain today. A CT scan demonstrated jose juan perforation with pneumoperitoneum. She was found on exam to have an acute abdomen. The patient was taken to the operating room. [address] [address] OPERATIVE REPORT Name: RAFAEL CONNELLY DAV Room #: 464-P [facility] IN .R.#: [id number] Admission: 08/10/19 Attend Phys: Will Bean MD Discharge: Date of : 49 Report #: [id number] The risks, benefits and alternatives of the procedure were discussed with the patient and her friends and her son over the phone. The risks discussed included but were not limited to the risk of bleeding, infection, open procedure, damage to any intra-abdominal organ, bowel resection, small bowel resection, colon resection, damage to the ureters, postoperative abscess, need for further surgery, further hospitalization, postoperative ileus, anesthesia (cardiac, pulmonary, neurologic type complications), and . The patient had the opportunity to ask questions. All questions were answered to the best of my ability. At the end of the discussion, she did wish to proceed with surgery. DESCRIPTION OF PROCEDURE: After informed consent was obtained as above, the patient was taken to the operating room and placed in the supine position. General anesthesia was induced. Preprocedural antibiotics were administered. She was then transitioned to the dorsal lithotomy position. Her perineum was prepped. Her abdomen was prepped and draped in the usual sterile fashion. A Freeman catheter had been inserted. Timeout was performed. I made a midline incision in the periumbilical position. Incision was carried down through the subcutaneous tissue and into the peritoneal cavity using electrocautery and then went to the peritoneum using [place] and the Bakey's. Peritoneal cavity was entered and fasciotomy was extended. The abdomen was inspected. Immediately, there was purulent fluid that was visible within the abdomen, it was foul smelling. The procedure began by mobilizing the omentum off the small bowel. The omentum was stuck to the pelvis through fibrinous adhesions, this was mobilized easily. The Bookwalter retractor was set up. The small bowel did have a loop of bowel that was connected to the sigmoid colon through adhesions. This was carefully peeled away. The small bowel was inflamed appearing. It was completely viable. There was a small serosal tear at this position. The serosal tear was fixed using Lembert sutures in an interrupted fashion, taking small bites to ensure that we did narrow the lumen of the bowel. We closed it in a longitudinal fashion and ensure we did not narrow the bowel. The small bowel was completely viable and there was definitely no leak. I then began by mobilizing the sigmoid colon. This was done by mobilizing the white line of Toldt. The white line of Toldt was mobilized laterally and in standard fashion using electrocautery in a right angle. This allowed the sigmoid colon to be floppy. The sigmoid colon was then retracted medially and the left ureter was identified using blunt dissection. The left ureter was very low in the field and out of the range of dissection. It was protected throughout the course. The proximal transection point of the sigmoid colon was identified where the diverticulitis stopped and the bowel was normal on palpation. This was at the descending point to the sigmoid colon junction. A window was made in the mesocolon using blunt dissection and electrocautery. A VINNIE blue load stapler was used to transect the colon at this position. The distal transection point was picked at the rectosigmoid junction. The ureter [facility] [address] [place] [address] OPERATIVE REPORT Name: RAFAEL CONNELLY Room #: 464-P [facility] IN M.R.#: [id number] Admission: 08/10/19 Attend Phys: Will Bean MD Discharge: Date of : 49 Report #: [id number] was well out of our field of operation at this point. The defect was made in the mesorectum using blunt dissection and electrocautery. A contour blue load stapler was used to transect the colon at this position. Next, the mesocolon was transected using a LigaSure device. This freed the specimen out of the patient and it was passed off the field. Next, the remaining colon was mobilized for a colostomy. The white line of Toldt was mobilized further up towards the splenic flexure; however, the splenic flexure was never mobilized. The splenic flexure was left alone for future plans for possible colostomy takedown. The colon was mobilized adequately and the colon was able to be pulled up above the level of the skin within her wound. This indicated that we had enough colon to mobilize. Next, I ran the small bowel again in its entirety and it appeared to be normal other than the angry appearing small bowel as described earlier that was only one loop. I then irrigated the abdomen with copious amounts of warm irrigation. We used approximately 5 liters to do so. We irrigated out all 4 quadrants and the irrigation was clear upon completion of this. I have placed a drain in the pelvis and brought it out the right flank. The drain was sutured in place using nylon suture. All free fluid was suctioned out. The patient was hemostatic. The colostomy incision was then created overlying the left rectus muscle in the supraumbilical position. Dissection was carried down through the subcutaneous tissue, anterior rectus sheath and posterior rectus sheath using electrocautery. The colon was brought up through the defect without any tension or difficulty. The colon was ensured to not be twisted while bringing it up. Our focus then turned to closing the patient's abdomen. The fascia was closed in a continuous running fashion, taking 0.5 cm x 0.5 cm advancement using 0 PDS in a continuous running fashion. The wound was then irrigated out with warm saline. The wound was closed loosely using laxmi. The wound was then covered. I then matured the colostomy in a standard fashion using broken sutures in 4 quadrants and then interrupted sutures in between the four quadrant Nelson sutures. A Prevena wound VAC was applied to the midline incision and colostomy appliance was placed overlying the colostomy. The patient tolerated the procedure well throughout the course of the procedure. There were no adverse events throughout the course of procedure. She was extubated and transferred to the PACU in stable condition. <ELECTRONICALLY SIGNED> By: Malik Osborn MD 08/15/19 [id number] Malik Osborn MD /nt
--- NOTE | 2019-08-15 12:06 | PATH ---
[facility] [address] [place] [address] PATHOLOGY RPT PROCEDURE Name: GODWINRAFAEL Room #: 464-P ADM IN M.R.#: [id number] Admission: 08/10/19 Date of : 49 Discharge: Report #: [id number] Path Case #: [id number] [facility] Accession Number: [id number] . 01 Material submitted: . colon - SIGMOID COLON . 01 Clinical history: . Perforated diverticulitis . 02 Diagnosis: Large intestine, sigmoid colon, colectomy: - Acute diverticulitis associated with abscess formation as well as extensive serositis compatible with perforation. - Background of extensive diverticulosis. - Negative for dysplasia or malignancy. - Margins of resection viable and unremarkable. (IUV/db; 08/12/2019) LBQ 08/12/2019 1406 Local . 02 Electronically signed: . Jennifer Bello MD, Pathologist NPI- [id number] . 01 Gross description: . The specimen is received in formalin, labeled "Rafael Langford, sigmoid colon" and consists of an unoriented segment of colon measuring 16.5 cm in length and ranging from 2.0-2.8 cm in diameter with mesocolon measuring up to 6.5 cm thick. Both margins are closed with laxmi. The serosa is pink-do, smooth, shiny with abscess formation and hemorrhage near one margin. Opening reveals a lumen packed with green fecal material. The mucosa is pink-do with no polyps or masses. There are multiple diverticula forming out pouches measuring up to 2.0 cm. Serial sectioning a perforated diverticulum consistent with the serosal abscess and hemorrhage. No additional perforations are grossly identified. Trauma Registrar sections are submitted as follows: . A1: Margin furthest abscess A2: Margin nearest abscess A3: Perforation A4-A6: Diverticula (SDY; 08/11/2019) SYU/SYU 08/11/2019 1128 Local . 02 Pathologist provided ICD-10: K57.32, K63.0, K57.30 . [address] [place] [address] PATHOLOGY RPT PROCEDURE Name: RAFAEL LANGFORD DAV Room #: 464-P [facility] IN M.R.#: [id number] Admission: 08/10/19 Date of : 49 Discharge: Report #: [id number] Path Case #: [id number] CPT . [id number] Specimen Comment: A courtesy copy of this report has been sent to Specimen Comment: [phone], , . Specimen Comment: Report sent to ,DR FLORES / DR MAGUIRE Performed at: [address], [place], [place] [id number] MD Tulio Franklin MD Phone: [phone] Performed at: [address] [id number] MD Jennifer Bello MD Phone: [phone]
--- NOTE | 2019-08-15 13:25 | NUR ---
SW reviewed chart and spoke with nursing and attending physician. Pt is progressing towards goals for discharge. Recommendation made for pt to go to post-acute care. SW met with pt at bedside to discuss discharge plan. Pt is agreeable with SNF placement. SW provided pt with list of SNFs for review. Pt lives in [place], and would be interested in [facility] or [facility] due to location. However, pt does want to review the list before making a decision. Pt with new colostomy. Pt's eventual discharge plan is to return home. SW to follow up with pt tomorrow for post-acute choices. SW is following to assist as needed with discharge planning.
[2019-08-15 15:00] VITALS: BP 151/60
--- NOTE | 2019-08-15 19:59 | NUR ---
ASSUMED PT CARE AT 7AM.PT IN AND OUT OF BED TO [facility] WITH ASSIST.ASSESSMENT COMPLETED.VSS.PT REPORTED FEELING BETTER BUT SOMETIMES NOT HAPPY ABOUT HER HEALTH STATUS.DR MORRISSEY HERE,ORDER NOTED.UNABLE TO DC PROVENA TO ABDOMEN DUE TO COLOSTOMY BAG ATTACHED UVOER IT.WILL DC IN AM AFTER DISCUSS WITH ELECTRICAL SYSTEMS ENGINEER. PT TOLERATED RENAL DIET AND C/O NAUSEA AFTER DINNER. WILL RECHECK PT BEFORE END OF SHIFT.REPORT OFF TO NOC RN.
[2019-08-15 20:17] VITALS: BP 144/51
--- NOTE | 2019-08-16 05:02 | NUR ---
ASSUMED CARE OF PT AT 1900HRS. PT IS AOX4 AND MAKES NEEDS BE KNOWN. FALL PRECAUTION IN PLACE. ABX TREATMENT CONTINUED. SOLID FOOD STARTED AND TOLERATED WITH SOME NAUSEA. NO EMISIS NOTED. PT REQUESTS BRIEFS DUE TO INCT. PT WAS ABLE TO SLEEP PART OF THE SHIFT. VSS AND NO S/S OF ACUTE DISTRESS. WILL CONTINUE TO MONITOR.
[2019-08-16 05:28] LABS: HEMATOCRIT 25.8 % (37.0-47.0); HEMOGLOBIN 8.3 gm/dL (12.0-15.0); MCHC 32.1 g/dL (28.0-37.0); MCV 99.8 fL (80.0-100.0); RBC 2.59 mil/uL (4.20-5.00); WBC 9.2 thou/uL (4.0-11.0)
[2019-08-16 05:42] LABS: ALBUMIN 1.4 g/dL (3.4-5.0); CREATININE 2.2 mg/dL (0.6-1.0); PHOSPHORUS 3.8 mg/dL (2.5-4.9)
[2019-08-16 05:46] LABS: POTASSIUM 5.4 mmol/L (3.5-5.1)
[2019-08-16 07:16] VITALS: BP 151/59
--- NOTE | 2019-08-16 09:00 | NUR ---
ostomy care prevena vac removed per drs orders, midline suture line intact w/ laxmi, well approximated, scant reddish drainage, telfa drsg applied, new pouch benny 2 piece system applied, cut to fit pouch w/ adapt ring under wafer, stoma pink viable budded w/ soft brown stool noted, very receptive to education, encouraged participation w/ care, supplies at bs, will cont to follow, greenhouse staff informed of care
[2019-08-16 13:40] VITALS: BP 151/59
[2019-08-16 14:33] VITALS: BP 160/66
--- NOTE | 2019-08-16 14:51 | NUR ---
Following for d/c planning needs. Spoke with pt and she said she would prefer going to [facility] rather than SNF. Spoke with rehabilitation technician and pt has been evaluated and accepted to [facility] with transfer arranged for 08/17. Will remain available to assist as needed.
--- NOTE | 2019-08-16 19:56 | NUR ---
Assumed pt care this am, VS have been stable though initially in the pm VS MANAGER DISCOVERY reported out elevated temprature when rechecked this was at 99.1. Ostomy nurse educated pt on colostomy care and removed her provina dressing and secured the site with abd and tape. Diet and medications are well tolerated. Pt is incontinent of both bowel and bladder, prefers to wear briefs. PAT worked with PT and OT. POC followed, no signs or verbalizations of distress have been noted. Endorsed to the night nurse to monitor temperature.
--- NOTE | 2019-08-17 06:04 | NUR ---
PT IS A/O X4.PT IS UP WITH SBA TO THE RESTROOM.PT DENIES PAIN.PT HAS A SYLVIA DRAIN. AND COLOSTOMY.PT IS ON ACCUCHECK AND HAS A RFA IV ACCESS 0.9%NS AT 100ML/HR.CONTINUE TO MONITOR
[2019-08-17 06:05] VITALS: BP 174/73
[2019-08-17 06:53] LABS: ALBUMIN 1.4 g/dL (3.4-5.0); CREATININE 2.2 mg/dL (0.6-1.0); PHOSPHORUS 3.7 mg/dL (2.5-4.9); POTASSIUM 5.2 mmol/L (3.5-5.1)
[2019-08-17 08:48] VITALS: BP 147/56
[2019-08-17] MEDS ORDERED: OXYCODONE HCL5 M1 PO (12:32)
[2019-08-17] MEDS ORDERED: OXYCODONE HCL10 MG PO (12:36)
[2019-08-17] MEDS ORDERED: VELTASSA8.4 GM PO (12:39)
[2019-08-17] MEDS ORDERED: MEROPENEM500 MG IV (12:40)
[2019-08-17 14:47] VITALS: BP 136/57
--- NOTE | 2019-08-17 15:25 | NUR ---
Assumed pt care at 7am.Pt in bed very excited about dc to inpt rehab today. Assessment completed.vss. Pt tolerated maed and diet.Dr Osborn and Maida here dc order noted.Pt refused lunch but only ate custard and drank ice tea.Report off to kathrin saravia on rehab.At 1510,pt dc to rehab per wc accompanied by elida.
== END 2019-08-17 15:25 | DRG 853 ==
LOC: ER 15:14 → 4W 16:28 → EROBS 16:28 → TBA 17:46 → 4W 22:38 → ENTRNSPT 08-17 14:40 → EDTRNSPTSTS 08-17 14:43 → 4W 08-17 15:25
PROVIDERS: Hospitalist; Internal Medicine; Nurse Practitioner; Nurse Practitioner Family; ADMIT Hospitalist
PROC: 0DBN0ZZ Excision of Sigmoid Colon, Open Approach (ICD-10-PCS; principal; 2019-08-10)
PROC: 0D1N0Z4 Bypass Sigmoid Colon to Cutaneous, Open Approach (ICD-10-PCS; principal; 2019-08-10)
DX: A41.9 Sepsis, unspecified organism (principal); K65.0 Generalized (acute) peritonitis; E44.0 Moderate protein-calorie malnutrition; N17.9 Acute kidney failure, unspecified; N18.4 Chronic kidney disease, stage 4 (severe); K57.40 Diverticulitis of both small and large intestine with perforation and abscess without bleeding; I69.351 Hemiplegia and hemiparesis following cerebral infarction affecting right dominant side; Q87.81 Alport syndrome; G62.9 Polyneuropathy, unspecified; E87.5 Hyperkalemia; D64.9 Anemia, unspecified; M35.00 Sjogren syndrome, unspecified; F41.9 Anxiety disorder, unspecified; E03.9 Hypothyroidism, unspecified; E78.5 Hyperlipidemia, unspecified; M10.9 Gout, unspecified; M19.90 Unspecified osteoarthritis, unspecified site; I12.9 Hypertensive chronic kidney disease with stage 1 through stage 4 chronic kidney disease, or unspecified chronic kidney disease; G40.909 Epilepsy, unspecified, not intractable, without status epilepticus; F32.9 Major depressive disorder, single episode, unspecified; Z60.2 Problems related to living alone; I25.10 Atherosclerotic heart disease of native coronary artery without angina pectoris; Z98.42 Cataract extraction status, left eye; Z98.41 Cataract extraction status, right eye; Z90.710 Acquired absence of both cervix and uterus; Z85.42 Personal history of malignant neoplasm of other parts of uterus; Z94.7 Corneal transplant status; Z79.899 Other long term (current) drug therapy; Z79.82 Long term (current) use of aspirin; Z88.6 Allergy status to analgesic agent; Z88.0 Allergy status to penicillin; Z88.8 Allergy status to other drugs, medicaments and biological substances; Z68.29 Body mass index [BMI] 29.0-29.9, adult
CPT/HCPCS: 10047; 50010; 50093; 50101; 50290; 50386; 50455; 50953; 51412; 51708; 51712; 56524; 56525; 56528; 57091; 62110; 62900; 70005; 95000

== ENCOUNTER → 2019-08-10 | Outpatient (CLI) | payer OTHER, MEDICARE ==
[2019-08-10 14:25] VITALS: BP 151/70
--- NOTE | 2019-08-10 14:47 | NUR ---
PT SCHEDULED FOR CT SCAN TODAY THEN CAME TO THE INFUSION CLINIC AFTER FOR HER DAILY MEROPENEM. ATTEMPT PRIOR TO CT SCAN TO START A NEW SALINE LOCK FOR PT WAS UNSUCCESSFUL X 1 ATTEMPT. VENOUS ACCESS POOR TODAY SO VASCULAR ACCESS NURSE CALLED, SHE PLACED #22 IN RIGHT HAND UPON PT'S RETURN TO CLINIC POST CT SCAN. CALL FROM CT SHORTLY AFTER PT'S RETURN TO CLINIC ALERTED THIS NURSE TO HAVE PT REMAIN NPO D/T FREE AIR FOUND ON SCAN. NICKEL OPERATOR INDICATED THAT DR. MAGUIRE WAS SPEAKING WITH THE RADIOLOGIST AND PT MAY NEED TO GO TO SURGERY TODAY. PT HAD ALREADY HAD LIKELY LESS THAN [address] ML [address], PRIOR TO THIS PHONE CALL BUT IS NOW BEING HELD NPO SINCE AROUND 1345. LABS DRAWN WITH IV START, MEROPENEM INFUSED. HOLDING PT WHILE AWAITING WORD FROM DR. MAGUIRE. CALLED HIS OFFICE AND HIS [employer] EM WAS LOOKING FOR DR. MORRISSEY' # DR. MAGUIRE WANTS TO SPEAK WITH HIM. I CALLED MARIBEL WITH DR. MORRISSEY TO ASK HER TO HAVE HIM CALL DR. MAGUIRE'S C# NASRIN (DONE AROUND 1440). PT APPRISED OF SITUATION AND IS AWAITING WORD ON THE NEXT STEPS. FRIEND AT SIDE. EMOTIONAL SUPPORT GIVEN. MEANWHILE, PT DOES REPORT A COUPLE EPISODES OF CRAMPING ABD PAIN, 6/10, BUT THESE WERE FLEETING. DENIES N/V/DIARRHEA BUT HAS BEEN FEELING CONSTIPATED. DENIES FEVER/CHILLS/SWEATS OVER LAST FEW DAYS.
--- NOTE | 2019-08-10 15:10 | NUR ---
RECEIVED CALL BACK FROM DR. MAGUIRE'S OFFICE. HE HAD NOT YET BEEN IN CONTACT WITH THE SURGEON SO HE ASKED THAT PT BE TAKEN TO THE ED TO BE EVALUATED AND ADMITTED. PT VERBALIZES UNDERSTANDING OF THIS PLAN. SPOKE WITH CHARGE NURSE, CHANELLE, WHO DID A QUICK HANDOFF AND INTAKE ON PT.
== END ==
LOC: OPONC 09:35
DX: K57.80 Diverticulitis of intestine, part unspecified, with perforation and abscess without bleeding (principal)
CPT/HCPCS: 95000

== ENCOUNTER 2019-08-17 11:10 | Inpatient (IN) | payer OTHER, MEDICARE ==
[~2019-08-17] VITALS: Ht 152.4 cm; Wt 69.4 kg
[~2019-08-17 11:10] MED LIST changes: +KAPSPARGO SPRIN25 MG PO; +NORVASC 2.5 MG2.5 M1 PO
[2019-08-17] MEDS ORDERED: OXYCODONE HCL5 M1 PO (12:32)
[2019-08-17] MEDS ORDERED: OXYCODONE HCL10 MG PO (12:36)
[2019-08-17] MEDS ORDERED: VELTASSA8.4 GM PO (12:39)
[2019-08-17] MEDS ORDERED: MEROPENEM500 MG IV (12:40)
[2019-08-17 16:00] VITALS: BP 161/73
--- NOTE | 2019-08-17 16:34 | NUR ---
cm new to acute rehab today. she in bed with daughter at bedside. pt able to make her needs know. new colostomy . she lives alone, no longer drives, a friend takes her to her appointment and run errands. she was independent that home. laundry in basement. 10 steps into house from garage. 4 steps up to the bedroom. cooks and manage own medication. has support from son and daughter, they don't live close by. will cont following as needed for dc needs.
--- NOTE | 2019-08-17 16:57 | NUR ---
ASSUMED CARE OF PT AT 1600. REPORT RECEIVED FROM PREVIOUS NURSE PRIOR TO ADMISSION TO UNIT. PT ARRIVED WITH VOLUNTEER TRANSPORT IN W/C AND WAS ASSISTED INTO BED BY NURSING STAFF. ADMISSION ASSESSMENT, EDUCATION, VITAL SIGNS, AND PAPERWORK COMPLETED. CONSULTS CALLED. PT ON SEIZURE PRECAUTIONS FOR HX OF SEIZURES. PT A&OX4, VITAL SIGNS STABLE. IV IN RIGHT HAND PATENT, DRESSING C/D/I, SITE WNL. 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 SYLVIA DRAIN TO RLQ. MIDLINE INCISION WITH DRESSING C/D/I, COLOSTOMY WITH APPLIANCE IN PLACE. ACCU CHECKS ACHS TO MONITOR FOR HYPOGLYCEMIA. FALL PRECAUTIONS IN PLACE AND NURSING WILL CONTINUE TO MONITOR.
[2019-08-17 19:08] VITALS: BP 164/80
--- NOTE | 2019-08-18 01:05 | NUR ---
PT ALERT AND ORIENTED X 4. AMB TO BR WITH WALKER AND ASSIST X 1 WITHOUT DIFFICULTY. COLOSTOMY INTACT WITH FORMED BROWN STOOL. SYLVIA DRAIN INTACT WITH SEROSANGUINOUS DRAINAGE. ABD DRESSING C/D/I. INCONT OF URINE AT TIMES. PT DENIES PAIN OR DISCOMFORT. BED ALARM ON FOR SAFETY. PT APPEARS TO BE SLEEPING ON HOURLY ROUNDS.
[2019-08-18 05:50] LABS: HEMOGLOBIN 7.9 gm/dL (12.0-15.0); MCH 31.9 pg (26.0-34.0); MCHC 32.7 g/dL (28.0-37.0); MCV 97.5 fL (80.0-100.0); RBC 2.46 mil/uL (4.20-5.00); RDW 16.1 % (10.5-14.5); WBC 7.3 thou/uL (4.0-11.0)
[2019-08-18 05:58] LABS: ALBUMIN 1.4 g/dL (3.4-5.0); CALCIUM 8.1 mg/dL (8.5-10.1); CREATININE 2.2 mg/dL (0.6-1.0); PHOSPHORUS 3.8 mg/dL (2.5-4.9); POTASSIUM 4.8 mmol/L (3.5-5.1)
[2019-08-18 07:30] VITALS: BP 155/68
--- NOTE | 2019-08-18 13:01 | NUR ---
Nutrition: pt admit with med complexity, general debility to rehab unit. Received consult related to pt having had surgery. Resolved perforated diverticulitis, post resection, colostomy. Tolerating po but states she has never ate much for lunch. Instructed on ordering meals and assisted with menu selections. Current weight up 10# from pt reported UBW. Pt with JEMAL and AV fistula in place but no plans for dialysis. Currently on renal diet with prior hyperkalemia. K+ WNL at present. Also on MVI, folic acid, ferrous sulfate, B12 and phos binder. Encouraged adequate protein sources and ordering meals as desired. Will trial nepro once daily. Place pt as low nutrition risk.
--- NOTE | 2019-08-18 14:51 | NUR ---
ASSUMED CARE OF PT AT 0715. PT IS A&OX4 AND VITAL SIGNS ARE STABLE. ACCU CHECKS BID TO MONITOR FOR HYPOGLYCEMIA. PT DENIES PAIN AND PARTICIPATED IN SCHEDULED THERAPIES. IV REMOVED DUE TO INFILTRATION THIS AFTERNOON AND IV TEAM NOTIFIED FOR REPLACEMENT. SYLVIA DRAIN IN PLACE AND DRAINING APPROPRIATELY. DRESSING TO MIDLINE INCISION C/D/I. COLOSTOMY APPLIANCE INTACT AND FUNCTIONING APPROPRIATELY. FALL PRECAUTIONS IN PLACE AND NURSING WILL CONTINUE TO MONITOR.
[2019-08-18 20:15] VITALS: BP 156/75
--- NOTE | 2019-08-19 01:31 | NUR ---
PT ALERT AND ORIENTED X 4. AMB TO BR WITH WALKER AND ASSIST X 1 WITHOUT DIFFICULTY. SYLVIA DRAIN PATENT WITH SEROSANGUINOUS DRAINAGE. ABD DRESSING C/D/I. COLOSTOMY WITH SMALL AMT LOOSE LIGHT BROWN STOOL. PT DENIES PAIN OR DISCOMFORT. BED ALARM ON FOR SAFETY. PT APPEARS TO BE SLEEPING ON HOURLY ROUNDS.
[2019-08-19 08:14] VITALS: BP 139/68
--- NOTE | 2019-08-19 09:14 | NUR ---
OSTOMY CARE pouch on x 4days, changed using 2 piece system benny cut to fit, stoma pink viable budded, peristomal skin intact, adapt ring applied under wafer, soft brown stool noted, encouraged participation in ostomy care, receptive to education, supplies at bs, staff radiation therapist informed of care, will cont to follow
--- NOTE | 2019-08-19 13:07 | NUR ---
ML ordered for this pt with CKD and a fistula in the lt arm. She has been evaluated for PIV's by the VAT with US prior several times and she has very limited options for a VAD. If this pt needs a CAD for IV abx recommend a SL TICC to preserve her vessels for future Dialysis needs.
--- NOTE | 2019-08-19 15:02 | NUR ---
ASSUMED CARES AT 0700. PT AWAKE, ALERT AND ORIENTED*4. DENIES PAIN. VITALS REMAIN STABLE. PICC LINE PLACED THIS AFTERNOON ON RIGHT IJ, AWAITING ON XRAY TO CHECK PLACEMENT OF IV. COLOSTOMY INTACT AND PATENT, BAG CHANGED TODAY. SYLVIA DRAIN INTACT AND PATENT, APPROXIMATELY 20-30CC OF SEROUSANGUINOUS DRAINAGE NOTED. AV FISTULA OF LEFT ARM REMAINS INTACT, THRILL AND BRUIT INTACT. PT UP WITH 1 MIN ASSIST, GB AND WALKER AND TOLERATED WELL. Q1H VISUAL CHECKS. CALL LIGHT WITHIN REACH. FALL PRECAUTIONS IN PLACE
--- NOTE | 2019-08-19 18:49 | NUR ---
CXR CONFIRMED TIP AT THE [facility] AND RELEASED FOR USE
[2019-08-19 19:48] VITALS: BP 154/54
--- NOTE | 2019-08-20 04:21 | NUR ---
assumed care at approx 1900 evening 08/19. pt alert and oriented x4, appropriate and cooperative. pt assisted up to bathroom to void before hs and once into night so far. pt appropriate and cooperative. pt given Tylenol for c/o pain and appears to be sleeping soundly at present. bed alarm on and call light in reach. will continue to monitor.
[2019-08-20 08:10] LABS: ABSOLUTE NEUTROPHILS 4.4 thou/uL (1.4-8.2); HEMATOCRIT 21.6 % (37.0-47.0); MCH 31.9 pg (26.0-34.0); WBC 5.9 thou/uL (4.0-11.0)
[2019-08-20 08:14] LABS: EOSINOPHILS 0.5 % (0.0-3.0); HEMOGLOBIN 7.2 gm/dL (12.0-15.0); MCHC 33.2 g/dL (28.0-37.0); MCV 96.1 fL (80.0-100.0); MONOCYTES 10.7 % (1.0-8.0); PLATELET COUNT 135 thou/uL (150-400); POLYS 74.8 % (36.0-66.0); RBC 2.25 mil/uL (4.20-5.00)
[2019-08-20 08:21] LABS: ALBUMIN 1.5 g/dL (3.4-5.0); CALCIUM 8.1 mg/dL (8.5-10.1); CREATININE 2.2 mg/dL (0.6-1.0); PHOSPHORUS 3.8 mg/dL (2.5-4.9)
[2019-08-20 08:23] LABS: URINE BILIRUBIN NEGATIVE (Negative); URINE BLOOD TRACE (Negative); URINE CLARITY CLEAR; URINE COLOR YELLOW; URINE GLUCOSE-RANDOM* NEGATIVE (Negative); URINE KETONES NEGATIVE (Negative); URINE LEUKOCYTES-REFLEX NEGATIVE (Negative); URINE NITRITE-REFLEX NEGATIVE (Negative); URINE PROTEIN (DIPSTICK) 1+ (Negative); URINE SPECIFIC GRAVITY 1.015 (1.005-1.035); URINE UROBILINOGEN 0.2 E.U./dl (0.2-1.0)
[2019-08-20 09:01] LABS: SQUAMOUS 4-10 Moderate /LPF (0-3)
[2019-08-20 09:02] LABS: BACTERIA-REFLEX 1-9 Few /HPF (None Seen); CASTS None Seen /LPF (None Seen); CRYSTALS None Seen /LPF (None Seen); URINE RBC 3-10 Few /HPF (0-2); YEAST-REFLEX Present (None Seen)
[2019-08-20 10:23] VITALS: BP 138/50
--- NOTE | 2019-08-20 13:22 | NUR ---
ASSUMED CARES AT 0700. PT AWAKE, ALERT AND ORIENTED*4. DENIES PAIN. VITALS REMAIN STABLE. VERY SLEEPY THIS AM, SLEPT IN BETWEEN MEALS AND THERAPIES. ABDOMINAL INCISION REMAINS DRY AND LIEN ARE INTACT. SYLVIA DRAIN IS INTACT, <20CC OF DRAINAGE NOTED. COLOSTOMY REMAINS INTACT AND PATENT. PT UP WITH 1 CONTACT GUARD ASSIST, GB AND WALKER AND TOLERATED WELL. Q1H VISUAL CHECKS. CALL LIGHT WITHIN REACH. FALL PRECAUTIONS IN PLACE
[2019-08-20 19:45] VITALS: BP 151/64
--- NOTE | 2019-08-21 01:01 | NUR ---
assumed care at approx 1900 evening 08/20. pt lying in bed with head of bed elevated dozing off and on. pt assisted up to bathroom to change into gown and assisted with emptying colostomy bag. pt took hs meds with water tolerating well. pt appears to be sleeping soundly with hourly rounding checks. bed alarm on and call light in reach. will continue to monitor.
[2019-08-21 07:15] VITALS: BP 147/74
--- NOTE | 2019-08-21 15:59 | NUR ---
ASSUMED CARE OF PT AT 0715. PT IS A&OX4 AND VITAL SIGNS ARE STABLE. RIGHT IJ LINE PATENT, DRESSING C/D/I, SITE WNL. DIALYSIS FISTULA TO MAXIMUS WNL. COLOSTOMY DRAINING APPROPRIATELY WITH BAG IN PLACE. REPORTS PAIN IN RLQ 3/10 MANAGED WITH TYLENOL, AMBULATED WITH STAFF. FALL PRECAUTIONS IN PLACE AND NURSING WILL CONTINUE TO MONITOR.
[2019-08-21 19:10] VITALS: BP 145/65
--- NOTE | 2019-08-22 04:59 | NUR ---
ASSUMED PT CARE AT 1900. PT A/OX4, VITAL SIGNS STABLE ASSESSMENT CHARTED. NO COMPLAINTS OF PAIN. COLOSTOMY AND SYLVIA DRAIN IN PLACE. NO ACUTE CHANGES THROUGH THE NIGHT. RESTED WELL THROUGH THE NIGHT. PROGRESSING TOWARD PLAN OF CARE. WILL CONTINUE TO MONITOR.
--- NOTE | 2019-08-22 08:49 | NUR ---
OSTOMY CARE; noted pouch opening cut too large, was changed earlier today, changed again to correct size, showed pt how to cut wafer to no more than 1/8' opening of stoma in order to prevent skin breakdown, peristomal skin intact, stoma pink viable slightly budded w/ soft brown stool noted, very receptive to education, encouraged to participate in ostomy care, info and supplies at bs. will cont to follow
[2019-08-22 09:45] VITALS: BP 152/55
--- NOTE | 2019-08-22 19:11 | NUR ---
ASSUMED CARE OF PT AT 0715. PT IS A&OX4 AND VITAL SIGNS ARE STABLE. PT DENIES PAIN AND PARTICIPATED IN SCHEDULED THERAPIES. SYLVIA DRAIN REMOVED BY DR MORRISSEY THIS SHIFT AND GAUZE AND CLEAR DRESSING PLACED OVER SITE. PER DR. MORRISSEY, LIEN NOT READY FOR REMOVAL AT THIS TIME. PT MAY SHOWER PER DR. MORRISSEY. RIGHT IJ IN PLACE, FLUSHES APPROPRIATELY, DRESSING C/D/I, SITE WNL. COLOSTOMY DRAINING SMALL AMOUNT OF FORMED STOOL THIS SHIFT, PT REFUSED MIRALAX THIS SHIFT. MARIA ELENA LOVE ORDERED AND PLACED PER PROVIDER FOR EDEMA IN BLE. PT EXPRESSED CONCERN ABOUT HOME DIET AND WOULD LIKE TO CONSULT WITH DIETARY, MESSAGE LEFT FOR GRACIE IN DIETARY. FALL PRECAUTIONS IN PLACE AND NURISNG WILL CONTINUE TO MONITOR.
[2019-08-22 19:12] VITALS: BP 138/50
--- NOTE | 2019-08-23 00:17 | NUR ---
ASSESSMENT COMPLETED. PT IS PLEASANT, QUIET AND COOPERATIVE. PT WALKING WELL WITH WALKER TO THE BATHROOM.REPORTS SOME SORENESS TO THE SIGHT WHERE SYLVIA DRAIN WAS, BUT SHE HAS NOT NEEDED ANY PAIN MEDS. COLOSTOMY PATENT WITH FORMED STOOL-EDUCATED ON NOT REFUSING THE MIRALAX IN AM-AGREEBLE. DRSG TO MIDLINE INCISION IS C/D/I.PT CALLS APPROPRIATELY.
[2019-08-23 06:31] LABS: HEMOGLOBIN 7.1 gm/dL (12.0-15.0); MCH 31.1 pg (26.0-34.0); MCHC 32.3 g/dL (28.0-37.0); MCV 96.3 fL (80.0-100.0); PLATELET COUNT 185 thou/uL (150-400); RBC 2.28 mil/uL (4.20-5.00); RDW 15.2 % (10.5-14.5); WBC 4.4 thou/uL (4.0-11.0)
[2019-08-23 06:45] LABS: ALBUMIN 1.6 g/dL (3.4-5.0); CALCIUM 8.4 mg/dL (8.5-10.1); CREATININE 2.3 mg/dL (0.6-1.0); PHOSPHORUS 4.2 mg/dL (2.5-4.9); POTASSIUM 3.6 mmol/L (3.5-5.1)
[2019-08-23 07:50] VITALS: BP 144/64
[2019-08-23 09:07] LABS: ABSOLUTE NEUTROPHILS 2.7 thou/uL (1.4-8.2); PLATELET ESTIMATE NORMAL
--- NOTE | 2019-08-23 13:33 | NUR ---
team meeting, recommendation. pt to cont with ostomy education. dc 08/30/19 hh ( pt, ot, nursing)
--- NOTE | 2019-08-23 15:13 | NUR ---
ASSUMED CARES AT 0700. PT AWAKE, ALERT AND ORIENTED*4. C/O LOWER ABDOMINAL PAIN AROUND INCISION, ACETAMINOPHEN ADMINISTERED. HR ELEVATED THIS AM, HOSPITALIST AWARE. ABDOMINAL INCISION REMAINS INTACT, LIEN IN PLACE. COLOSTOMY REMAINS INTACT AND PATENT, STOOL IS SOFT, NON-FORMED, SMALL AMOUNT. PT UP WITH 1 MIN ASSIST, GB AND WALKER AND TOLERATED WELL. Q1H VISUAL CHECKS. CALL LIGHT WITHIN REACH. FALL PRECAUTIONS IN PLACE
--- NOTE | 2019-08-23 15:33 | NUR ---
Nutrition: pt seen due to request related to renal diet. RD reviewed and answered questions, modified alternative menu to ease meal ordering for pt. JEMAL on CKD stage 4. K has been WNL for several days so allowing mashed potatoes for dinner tonight per pt request. PO intake 50-100% of meals and pt drinks 1 nepro daily at home. Provided info on where to obtain after D/C as pt would like to continue these. Low nutrition risk.
[2019-08-23 19:45] VITALS: BP 134/66
--- NOTE | 2019-08-24 01:44 | NUR ---
ASSUMED CARE OF PT @1900 PT ASSESSED AT START OF SHIFT A&OX4 DENIES PAIN AT THIS SHIFT. UP WITH SBA WITH WALKER TO THE BATHROOM. PT EASTERN [place] BILATERAL HEARING AIDS ON. ABX INFUISING. ENCOURAGED PO FLUIDS INTAKE. COLOSTOMY BAG INTACT AND SOFT BM NOTED. HR 81 AT THIS SHIFT. LIEN INTACT IN MIDLINE INCISION. ON RM/A. FALL PREC IN PLACE, HOURLY ROUNDING DONE AND CALL LIGHT WITHIN REACH WILL CONT WITH POC TILL EOS.
[2019-08-24 05:18] LABS: ALBUMIN 1.7 g/dL (3.4-5.0); CALCIUM 8.5 mg/dL (8.5-10.1); CREATININE 2.4 mg/dL (0.6-1.0); PHOSPHORUS 3.8 mg/dL (2.5-4.9); POTASSIUM 3.7 mmol/L (3.5-5.1)
[2019-08-24 08:40] VITALS: BP 129/54
[2019-08-24 10:33] LABS: HEMATOCRIT 21.5 % (37.0-47.0)
--- NOTE | 2019-08-24 10:50 | NUR ---
ASSUMED CARES AT 0700. PT AWAKE, ALERT AND ORIENTED*4. C/O LOWER ABDOMINAL PAIN 3/10, TYLENOL ADMINISTERED ORDERED. VITALS REMAIN STABLE. LOWER ABDOMINAL INCISION REMAINS INTACT, GARRISON. COLOSTOMY REMAINS INTACT AND PATENT, DARK GREEN SOFT STOOLS NOTED. RIGHT IJ REMAINS INTACT AND PATENT, ASPIRATED FOR BLOOD. PT UP WITH 1 SBA, GAITBELT AND WALKER AND TOLERATED WELL. Q1H VISUAL CHECKS. CALL LIGHT WITHIN REACH. FALL PRECAUTIONS IN PLACE
[2019-08-24 19:17] VITALS: BP 133/60
--- NOTE | 2019-08-25 04:30 | NUR ---
assumed care at approx 1900 evening 08/24. pt alert and oriented x4, appropriate and cooperative. pt talking on phone at change of shift. pt stated she had a good day with therapy and feels like she is making progress with her rehab goals. colostomy intact and abd incision c/d/i. pt denies complaints and took hs meds without difficulty. pt appears to be sleeping soundly with hourly rounding checks. bed alarm on and call light in reach. will continue to monitor.
[2019-08-25 08:21] VITALS: BP 160/72
--- NOTE | 2019-08-25 10:19 | NUR ---
OSTOMY CARE pouch edges loose, pouch changed using 2 piece system benny cut to fit, had difficulty cutting wafer due to neuropathy in hands, informed pt once stoma mature could order precut pouches, will also have home health assist at [facility], adapt ring applied under wafer, stoma pink viable slightly budded, peristomal skin intact, mid line abd incision w/ laxmi remain intact, area protected w/ telfa sue, very receptive to education, info and supplies at bs, will cont to follow
--- NOTE | 2019-08-25 16:48 | NUR ---
ASSUMED CARE OF PT AT 0715. PT IS A&OX4, VITAL SIGNS ARE STABLE. RIGHT IJ PATENT DRESSING C/D/I, SITE WNL. MIDLINE INCISION WELL APPROXIMATED. COLOSTOMY DRAINING APPROPRIATLEY. DENIES PAIN AND PARTICIPATED IN SCHEDULED THERAPIES. SMALL BLISTER 1.5CMX1.5CM TO RLQ, GAUZE PLACED OVER SITE TO REDUCE FRICTION TO THE AREA. SEIZURE PRECAUTIONS IN PLACE FOR HX OF SEIZURES. FALL PRECAUTIONS IN PLACE AND NURSING WILL CONTINUE TO MONITOR.
[2019-08-25 19:37] VITALS: BP 122/50
--- NOTE | 2019-08-26 02:27 | NUR ---
ASSUMED CARE @ 19:20 ON 08/25/19. IN BED, EYES CLOSED, RESPIRATIONS EVEN AND UNLABORED AT START OF SHIFT. AWAKE WHEN ENTERED ROOM TO ASSESS PATIENT. COLOSTOMY BAG INTACT, MIDLINE DRESSING C/D/I. RIJ PATENT AND INTACT WITH NO R/S/I. IV ATX PROVIDED WITH NO ADVERSE EFFECTS NOTED. PO MEDS PROVIDED, AND TAKEN WHOLE WITH THIN LIQUIDS. BED ALARM ON, CALL LIGHT WITHIN REACH, WILL CONTINUE TO MONITOR Q 1 HOUR FOR PATIENT SAFETY.
[2019-08-26 06:11] LABS: ALBUMIN 1.8 g/dL (3.4-5.0); CALCIUM 8.7 mg/dL (8.5-10.1); CREATININE 2.4 mg/dL (0.6-1.0); PHOSPHORUS 3.8 mg/dL (2.5-4.9); POTASSIUM 4.1 mmol/L (3.5-5.1)
[2019-08-26 08:19] VITALS: BP 143/68
[2019-08-26 12:38] LABS: HEMATOCRIT 22.1 % (37.0-47.0); HEMOGLOBIN 7.2 gm/dL (12.0-15.0)
--- NOTE | 2019-08-26 16:19 | NUR ---
cm notified by nonprofit director and rehab that pt is going to require rollator for dc. cm visited [facility] pt at bedside discussed dme company, provider plus is ok and lets go with [facility] ( [facility]). referral to be sent to [facility].
--- NOTE | 2019-08-26 16:31 | NUR ---
ASSUMED CARE OF PT AT 0715. PT IS A&OX4 AND VITAL SIGNS ARE STABLE. PT REPORTED ABDOMINAL PAIN, WHICH WAS MANAGED WITH PO MEDICAITONS, PT PARTICIPATED IN SCHEDULED THERAPIES. 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 MIDLINE INCISION WELL APPROXIMATED, LIEN IN PLACE. COLOSTOMY DRAINING APPROPRIATELY, PT PARTICIPATING IN CARES. MOD I IN ROOM. EDUCATED PT ON FALL PRECAUTIONS WHEN MOD I IN ROOM. FALL PRECAUTIONS IN PLACE AND NURSING WILL CONTINUE TO MONITOR.
[2019-08-26 21:06] VITALS: BP 141/65
--- NOTE | 2019-08-27 03:39 | NUR ---
assumed care at approx 191 evening 08/26. pt lying in bed with head of bed elevated at change of shift. pt alert and oriented x4, appropriate and cooperative. pt in good mood glad she is modified indep in her room. pt denied complaints. pt took hs meds with water tolerating well. pt appears to be sleeping soundly with hourly rounding checks. bed alarm on and call light in reach. will continue to monitor.
[2019-08-27 07:43] VITALS: BP 150/73
--- NOTE | 2019-08-27 17:38 | NUR ---
ASSUMED CARE OF PT AT 0715. REPORTS SLEPT GOOD LAST NIGHT. PT IS A&OX4 AND VITAL SIGNS ARE STABLE. ABLE TO VOICE HER NEEDS. DENIES ABDOMINAL PAIN. PT PARTICIPATED IN SCHEDULED THERAPIES. 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 MIDLINE INCISION WELL APPROXIMATED, LIEN IN PLACE. COLOSTOMY DRAINING HAD MEDIUM PASTY GREEN BOWEL. ENCOURAGED PT TO TAKE MIRALAX DAILY. HGB LOW CONTINUE TO BE ON IRON SUPPLEMENT DAILY. PT PARTICIPATING IN CARES. MOD I IN ROOM. EDUCATED PT ON FALL PRECAUTIONS WHEN MOD I IN ROOM. PT IS IN GOOD SPIRIT. NOT HAVE GOOD APPETITE D/T BE ON RENAL DIET. ELECTROLYTE STABLE AND ON RENAL SUPPLEMENT. WILL DISCUSS WITH HOSPITALIST TO SEE IF PT CAN BE ON REGULAR DIET SO SHE CAN EAT BETTER. WILL GIVE REPORT TO NIGHT NURSE TO CONTINUE TO MONITOR.
[2019-08-27 19:40] VITALS: BP 146/66
--- NOTE | 2019-08-28 01:57 | NUR ---
ASSUMED CARE AT APPROX 1900 EVENING 08/27. PT ALERT AND ORIENTED X4, APPROPRIATE AND COOPERATIVE. PT STATED SHE HAD A GOOD DAY WITH THERAPY. PT TOOK HS MEDS WITH NO PROBLEMS AND IV ANTIBIOTIC INFUSED WITHOUT DIFFICULTY TO RIGHT JUGULAR SITE. PT MODIFIED INDEPENDENT IN ROOM TOLERATING WELL. PT APPEARS TO BE SLEEPING SOUNDLY WITH HOURLY ROUNDING CHECKS. CALL LIGHT IN REACH. WILL CONTINUE TO MONITOR.
[2019-08-28 07:31] VITALS: BP 135/61
--- NOTE | 2019-08-28 15:20 | NUR ---
ASSUMED CARE OF PT AT 0715. PT IS A&OX4. IS GAMBELL. IS ON ROOM AIR. IS STABLE. IS UP MOD I IN ROOM & GAIT BELT. HOURLY ROUNDING MAINTAINED. DENIES PAIN TO ABD. INCISION INTACT WITH LIEN. COLOSTOMY INTACT. PT IS MAINTAINING. LABS & VITALS REVIEWED. WILL CONTINUE TO MONITOR.
[2019-08-28 19:20] VITALS: BP 128/62
--- NOTE | 2019-08-29 02:36 | NUR ---
PT ALERT AND ORIENTED X 4. MODIFIED INDEPENDENT IN ROOM WITHOUT DIFFICULTY. COLOSTOMY INTACT. RIJ INTACT AND FLUSHES EASILY. ABD INCISION C/D/I WITH LIEN. PT DENIES PAIN OR DISCOMFORT. PT CHECKED ON HOURLY ROUNDS.
[2019-08-29 07:38] VITALS: BP 148/60
--- NOTE | 2019-08-29 07:46 | NUR ---
ASSUME PT CARE AT 0700. VSS ON RA. REPORTS SLEPT GOOD. OSTOMY NURSE CAME TO CHANGE HER COLOSTOMY, PT IS ABLE TO EMPTY IT NOW. PT ALERT AND ORIENTED X 4. MODIFIED INDEPENDENT IN ROOM WITHOUT DIFFICULTY. COLOSTOMY INTACT. RIJ INTACT AND FLUSHES EASILY. ABD INCISION C/D/I WITH LIEN. WILL CALL DR. DE JESUS TO SEE IF LIEN CAN REMOVE BEFORE D/C TOMORROW. PT DENIES PAIN OR DISCOMFORT. OFFERED SUPPORTIVE CARE. MEDS GIVEN ORDERED. LAST HGB 7.2 ON Aug, WILL CHECK WITH JC ABOUT RECHECK HGB AND IV ABT ADJUSTING BEFORE D/C TOMORROW. ENCOURAGED PT TO VOICE HER NEEDS.CONTINUE TO CHECK FREQUENTLY FOR NEEDS AND SAFETY. HER GOALS ARE TO CONTINUE WITH HER THERAPY TODAY.
--- NOTE | 2019-08-29 07:47 | NUR ---
OSTOMY CARE pouch changed w/ pt assisting, due to neuropathy in hands pt having trouble cutting wafer to correct size, informed pt once stoma mature she can order precut pouches, secure start dc kit arrived at pts home, closed ended disposal pouches in kit, informed pt to try these and home health can assist w/ ordering what pt prefers. new pouch benny 2 piece system applied w/ pt helping, adapt ring applied under wafer, stoma pink viable slightly budded, soft dark brown stool noted, peristomal skin intact, able to empty pouch on own, supplies and info at bs, medical staffing coordinator informed, will cont to follow
[2019-08-29 10:00] VITALS: BP 148/60
[2019-08-29 10:04] VITALS: BP 148/60
--- NOTE | 2019-08-29 10:04 | NUR ---
Pt is working with therapy this morning. DC plan for home tomorrow with hh discussed. HH referral for RN,PT and OT confirmed with [facility]. Will fax final orders at [facility] and they will see her Thursday. They are aware that she is a new ostomy pt. [facility] ciro has the script for the rollator walker and will issue it to the pt later today. Pt is aware and agreeable. Care team updated.
[2019-08-29 20:30] VITALS: BP 133/59
--- NOTE | 2019-08-29 23:03 | NUR ---
PT ASSESSMENT DONE AND VSS. MEDICATION GIVEN AND WELL TOLERATED. FALL PRECAUTIONS IN PLACE. HOURLY ROUNDING. CALL LIGHT IN REACH. SLEEPING WELL. WILL CONTINUE TO MONITOR.
[2019-08-30 07:15] VITALS: BP 141/70
[2019-08-30] MEDS ORDERED: OXYCODONE HCL5 M1 PO (08:07)
[2019-08-30] MEDS ORDERED: MIRALAX17 GM PO (08:17)
[2019-08-30] MEDS ORDERED: TYLENOL325 MG PO (08:17)
[2019-08-30] MEDS ORDERED: PROBIOTIC1 EAC1 PO (08:17)
[2019-08-30] MEDS ORDERED: PEPCID20 MG PO (08:17)
[2019-08-30] MEDS ORDERED: METOPROLOL SUCC50 MG PO (08:17)
--- NOTE | 2019-08-30 12:00 | H ---
[facility] [place] [address] HISTORY AND PHYSICAL Name: SIMBARAFAEL GERMAIN Room #: 501-A ADM IN ..#: [id number] Admission: 08/17/19 Attend Phys: Evaristo Anders MD Discharge: Date of : 49 Report #: [id number] THIS REPORT FOR: //name// CC: Jonathon Anders DATE OF SERVICE: 08/17/2019 HISTORY AND PHYSICAL/POSTADMISSION PHYSICIAN EVALUATION HISTORY OF PRESENT ILLNESS: The patient has been admitted for acute in-hospital inpatient rehabilitation. Please see the prior consult note dictation and my progress note from yesterday and see the full history and physical. I agree with the results of the examination. ASSESSMENT AND PLAN: As per the history and physical. The patient was admitted originally on 08/10/2019 with abdominal discomfort. Noted to have acute diverticulitis and underwent laparotomy with sigmoidectomy with colostomy on 08/10/2019. She had problems with acute on chronic renal insufficiency, developed anemia postoperatively. She does have a premorbid peripheral neuropathy. She has medical complexity with generalized debilitation and has been admitted now for acute in-hospital inpatient rehabilitation. Please see the above noted prior medical history, allergies, habits and social history. MEDICATIONS: Please see the full medication listing. REVIEW OF SYSTEMS: Did not offer any complaints of chest pain, shortness of breath or abdominal discomfort. PHYSICAL EXAMINATION: GENERAL: The patient was seen earlier. VITAL SIGNS: Last recorded temperature 98, pulse 83, respirations 17, blood pressure 155/68. She was sleeping, but would arouse. HEENT: Facies appeared symmetric. CHEST: Sounded clear to auscultation. CARDIOVASCULAR: Regular rate and rhythm. ABDOMEN: She has the ostomy with bag in place, abdominal drain. Bowel sounds are positive. GENITOURINARY AND RECTAL: Deferred. EXTREMITIES: Functional range of motion of both upper extremities. Strength is probably a grade 3+/5 to 4-/5. Lower extremities functional range of motion with strength probably a grade 3+ to 4-/5 as well. No focal calf swelling. She needs assistance with functional mobility and ADLs. ASSESSMENT: A 74-year-old female with the following problem list: 1. Medical complexity with generalized debilitation. [address] [address] HISTORY AND PHYSICAL Name: RAFAEL CONNELLY [facility] Room #: 501-A ADM IN [facility]#: [id number] Admission: 08/17/19 Attend Phys: Evaristo Anders MD Discharge: Date of : 49 Report #: [id number] 2. Diverticulitis status post laparotomy, sigmoidectomy with colostomy on 08/10/2019. 3. Acute renal insufficiency on chronic kidney disease stage 4. 4. Anemia postop. 5. Prior history of cerebrovascular accident in 2009. 6. Premorbid peripheral neuropathy. 7. History of seizure. 8. Hypothyroidism. 9. Hyperlipidemia. PLAN: The patient has been admitted for acute in-hospital inpatient rehabilitation. From a postadmission physician evaluation perspective, there are no relevant changes since the preadmission screening. Please see the review of prior and current medical and functional conditions and comorbidities. Please see the patient's previous and current functional status. As far as risk of complications, the patient has multiple medical comorbidities as noted above. Initial plan of care involves the interdisciplinary acute inpatient rehabilitation program. Measurable functional goals would be for the patient to become modified independent with transfers, mobility, ADLs, so she can hopefully return back to her prior living situation. Also to further improve from a medical and surgical perspective. Prognosis is reasonably good with estimated length of stay probably at least 7-10 days and likely longer if warranted. Potential barriers would include the multiple medical comorbidities and decreased functional status. The patient meets diagnostic criteria for an acute in-hospital inpatient rehabilitation stay. She meets the medical necessity criteria and we will have the solar sales consultant physicians continue to follow. She does have the tolerance for therapies and has appropriate discharge goals back to the home setting. <ELECTRONICALLY SIGNED> By: Evaristo Anders MD 08/30/19 1200 1059 [id number] Evaristo Anders MD /nt
--- NOTE | 2019-08-30 12:00 | PLAN ---
[facility] [place] [address] REHAB UNIT PLAN OF CARE Name: SIMBARAFAEL GERMAIN Room #: 501-A ADM IN .R.#: [id number] Admission: 08/17/19 Attend Phys: Evaristo Anders MD Discharge: Date of : 49 Report #: [id number] THIS REPORT FOR: //name// CC: Jonathon Anders DATE OF SERVICE: 08/19/2019 PROGRESS NOTE/OVERALL PLAN OF CARE SUBJECTIVE: The patient is seen back today in followup. She is in no distress. Last recorded temperature 99.2, pulse 89, respirations 17, blood pressure 156/75. The patient is alert. Abdominal drain is to be removed as per discussion with the Surgery. She is progressing in therapies with transfers, min assist. Gait min assist 125 feet without a device. In occupational therapy, lower body dressing is mod assist. ASSESSMENT: 1. Medical complexity with generalized debilitation. 2. Acute diverticulitis, status post laparotomy. Sigmoidectomy with colostomy. 08/10/2019. 3. Acute renal insufficiency on chronic kidney disease stage 4. 4. Anemia postop. 5. History of cerebrovascular accident in 2009. 6. Premorbid peripheral neuropathy. 7. History of seizure. 8. Hypothyroidism. 9. Hyperlipidemia. PLAN: The overall plan of care is based on the preadmission screen, post-admission physician evaluation and information garnered from therapy assessments. 1. Estimated length of stay is probably 10 days to 2 weeks. 2. Medical prognosis is reasonably good. 3. Anticipated interventions includes the interdisciplinary acute inpatient rehabilitation program. 4. Anticipated functional outcomes would be for the patient to become modified independent with transfers, mobility, ADLs, so she can hopefully return back to her prior living situation. 5. Discharge destination would be back to her home setting where she lives alone in a house. 6. Expected therapy by discipline includes PT and OT 1-1/2 hours per day each [facility] [address] [place] [address] REHAB UNIT PLAN OF CARE Name: SIMBARAFAEL GERMAIN [facility] Room #: 501-A [facility] IN [facility].#: [id number] Admission: 08/17/19 Attend Phys: Evaristo Anders MD Discharge: Date of : 49 Report #: [id number] five days a week throughout the duration of the acute inpatient rehabilitation stay. <ELECTRONICALLY SIGNED> By: Evaristo Anders MD 08/30/19 1200 0913 [id number] Evaristo Anders MD /nt
[2019-08-30 12:04] VITALS: BP 148/60
--- NOTE | 2019-08-30 12:23 | NUR ---
team meeting, cont with dcp for today. 4ww with seat and breaks, ostomy care. [facility] w[facility].
[2019-08-30 13:24] VITALS: BP 148/60
--- NOTE | 2019-08-30 13:24 | NUR ---
DISCHARGE ORDERS COMPLETED. PATIENT DISCHARGING TO HOME WITH [facility]. DISCHARGE/HOME HEALTH ORDERS FAXED TO [facility]. CALL PLACED TO AVINASH, VERIFIED ORDERS RECEIVED. [facility]INASH TO FACILITATE PATIENTS HH SERVICES. UNIT RN NOTIFIED.
--- NOTE | 2019-08-30 16:33 | NUR ---
ASSUMED CARE OF PT ATJ 0715. PT IS A&OX4 AND VITAL SIGNS BELKYS STABLE. ORDERS FROM DR. MORRISSEY TO REMOVE LIEN FROM ABDOMINAL INCISION SITE. SITE C/D/I, WELL APPROXIMATED. 18 LIEN REMOVED FROM SITE AND STERI STRIPS PLACED. RIGHT IJ LINE REMOVED PER ORDERS PRIOR TO DISCHARGE USING REMOVAL PROTOCOL. PT PROVIDED WITH DISCHARGE INSTRUCTIONS AND EDUCATION PRIOR TO DISHCARGE. FAMILY REMOVED ITEMS FROM ROOM PRIOR TO DISHCARGE. PT LEFT UNIT IN W/C WITH [facility]SPORT AT 1600.
== END 2019-08-30 16:00 | disposition home health service (06) | DRG 391 ==
LOC: ENTRNSPT 08-30 15:39 → EDTRNSPTSTS 08-30 15:50
PROVIDERS: Hospitalist; Nurse Practitioner; ADMIT Physical Medicine & Rehabilitation
DX: K57.80 Diverticulitis of intestine, part unspecified, with perforation and abscess without bleeding (principal); E43 Unspecified severe protein-calorie malnutrition; N18.4 Chronic kidney disease, stage 4 (severe); I69.351 Hemiplegia and hemiparesis following cerebral infarction affecting right dominant side; Q87.81 Alport syndrome; D62 Acute posthemorrhagic anemia; R53.81 Other malaise; E03.9 Hypothyroidism, unspecified; E78.5 Hyperlipidemia, unspecified; G40.909 Epilepsy, unspecified, not intractable, without status epilepticus; F41.9 Anxiety disorder, unspecified; F32.9 Major depressive disorder, single episode, unspecified; G62.9 Polyneuropathy, unspecified; M10.9 Gout, unspecified; E87.5 Hyperkalemia; G31.84 Mild cognitive impairment of uncertain or unknown etiology; I25.10 Atherosclerotic heart disease of native coronary artery without angina pectoris; M19.90 Unspecified osteoarthritis, unspecified site; Z88.8 Allergy status to other drugs, medicaments and biological substances; Z88.6 Allergy status to analgesic agent; Z88.0 Allergy status to penicillin; Z88.1 Allergy status to other antibiotic agents; Z94.7 Corneal transplant status; Z98.41 Cataract extraction status, right eye; Z98.42 Cataract extraction status, left eye; Z68.29 Body mass index [BMI] 29.0-29.9, adult; Z90.710 Acquired absence of both cervix and uterus; Z85.42 Personal history of malignant neoplasm of other parts of uterus
CPT/HCPCS: 10112

== ENCOUNTER 2019-12-15 17:12 | Inpatient (IN) | payer OTHER, MEDICARE ==
[~2019-12-15] VITALS: Ht 152.4 cm; Wt 64.9 kg
--- NOTE | ~2019-12-15 | HC ---
[facility] [place] [address] CONSULTATION Name: RAFAEL CONNELLY Room #: 444-P ADM IN M.R.#: [id number] Admission: 12/15/19 Attend Phys: Elian Rahman MD Discharge: Date of : 49 Report #: [id number] THIS REPORT FOR: cc: Unique Romero MD,Unique Prescott,Carlitos Noland MD ~ CC: Unique Rahman REASON FOR CONSULTATION: Chronic kidney disease. REASON FOR PRESENTATION: Left hip pain. 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 She is followed by [facility]. She has a left AV fistula, but she is not undergoing hemodialysis yet. She is being prepared for hemodialysis. She has extensive past medical history and I had evaluated her on numerous occasions in the last couple of months. She presented with right hip pain. She was admitted to further evaluate. She was found to have an elevated ESR with elevated white blood cell count. Creatinine on presentation was slightly above her baseline at 3.5. She usually runs anywhere from 2.5-3. She was initiated on appropriate IV fluid and admitted for further evaluation and management. She also reported that she had decreased appetite, but no nausea. She has had some issues. Those issues are being addressed by the primary care physician. From the renal perspective as stated above, she is followed by [facility]. She was told that ultimately she will need to go on hemodialysis. PAST MEDICAL HISTORY: 1. Alport syndrome. 2. Status post hysterectomy. 3. Sjogren syndrome. 4. Status post colostomy for a sigmoidectomy. 5. Cutaneous lupus. 6. Cataract surgeries. 7. Corneal transplant. 8. Appendicitis. 9. Seizure disorder. 10. Status post left AV fistula. 11. Cerebrovascular accident. 12. Hypothyroidism. 13. Left breast lumpectomy. 14. Diskectomy. MEDICATIONS: 1. Ferrous sulfate. 2. Atorvastatin. [facility] [address] [place] [address] CONSULTATION Name: RAFAEL CONNELLY Room #: 444-P [facility] IN M.R.#: [id number] Admission: 12/15/19 Attend Phys: Elian Rahman MD Discharge: Date of : 49 Report #: [id number] 3. Metoprolol. 4. Gabapentin. 5. Keppra. 6. Sodium bicarbonate. 7. Folic acid. 8. Levothyroxine. 9. Amlodipine. ALLERGIES: PENICILLIN, CIPRO, AND CODEINE. REVIEW OF SYSTEMS: GENERAL: Significant for lethargy and weakness. CARDIOVASCULAR: No chest pain or palpitations. PULMONARY: No cough or hemoptysis. GASTROINTESTINAL: As per the history of present illness. GENITOURINARY: No frequency, no urgency. MUSCULOSKELETAL: Occasional back pain. NEUROLOGICAL: No headache, no dizziness, and no seizure activities. FAMILY HISTORY: Her son has kidney transplant due to Alport syndrome. PHYSICAL EXAMINATION: GENERAL: She is alert, oriented, in no apparent distress. VITAL SIGNS: Blood pressure is 134/61, temperature is 37.1, and pulse rate is 92. HEAD AND NECK: No jugular venous distention. CHEST: No crackles. CARDIOVASCULAR: Regular with no rub detected. ABDOMEN: Soft, nontender. EXTREMITIES: Lower extremities, no edema. Upper extremities, left AV fistula SKIN: There is a colostomy bag. LABORATORY DATA: Reviewed. White blood cell count on presentation was 16.2. ESR was elevated at 115. Sodium was 141, potassium was 4.0, BUN was 49, and creatinine was 3.5. IMPRESSION AND PLAN: 1. Acute kidney injury. 2. Chronic kidney disease. 3. Leukocytosis. 4. Right hip pain. 5. Elevated ESR. 6. The patient's creatinine is slightly above her baseline, likely related to a prerenal condition. 7. Continue with the IV fluid. 8. Watch electrolytes. [address] [address] CONSULTATION Name: RAFAEL CONNELLY DAV Room #: 444-P [facility] IN M.R.#: [id number] Admission: 12/15/19 Attend Phys: Elian Rahman MD Discharge: Date of : 49 Report #: [id number] 9. Watch urine output. No plans to initiate hemodialysis. 10. Had elevated ESR, white blood cell count is being addressed by the primary team. By: 0658 [id number] Carlitos Prescott, /johana
[~2019-12-15 17:12] MED LIST changes: +MEROPENEM500 MG IV; +METOPROLOL SUCC50 MG PO; +MIRALAX17 GM PO; +OXYCODONE HCL10 MG PO; +OXYCODONE HCL5 M1 PO; +PROBIOTIC1 EAC1 PO; +TYLENOL325 MG PO; +VELTASSA8.4 GM PO
[2019-12-15 17:16] VITALS: BP 134/63
[2019-12-15 20:37] LABS: MCHC 32.5 g/dL (28.0-37.0); POLYS 75.8 % (36.0-66.0)
[2019-12-15 20:39] LABS: ABSOLUTE NEUTROPHILS 10.1 thou/uL (1.4-8.2); BASOPHILS 0.7 % (0.0-2.0); EOSINOPHILS 0.3 % (0.0-3.0); HEMATOCRIT 35.9 % (37.0-47.0); HEMOGLOBIN 11.7 gm/dL (12.0-15.0); LYMPHOCYTES 13.9 % (24.0-44.0); MCH 30.8 pg (26.0-34.0); MCV 94.6 fL (80.0-100.0); MONOCYTES 9.3 % (1.0-8.0); PLATELET COUNT 147 thou/uL (150-400); RBC 3.79 mil/uL (4.20-5.00); RDW 14.4 % (10.5-14.5); WBC 16.2 thou/uL (4.0-11.0)
[2019-12-15 21:07] LABS: CALCIUM 10.4 mg/dL (8.5-10.1); CREATININE 3.5 mg/dL (0.6-1.0); POTASSIUM 4.3 mmol/L (3.5-5.1)
[2019-12-15 23:27] VITALS: BP 147/69
--- NOTE | 2019-12-15 23:27 | NUR ---
HAND OFF TOOL PRINTED TO SOUTH
[2019-12-16 00:48] VITALS: BP 154/67
[2019-12-16] MEDS ORDERED: NORVASC 2.5 MG2.5 M1 PO (01:58)
[2019-12-16] MEDS ORDERED: ASPIRIN EC325 M1 PO (01:59)
--- NOTE | 2019-12-16 02:43 | NUR ---
0100 assumed care of pt after report from beto in er. assessment completed, see assessment. pt states dry cough no sputum, lctab resp effort unlabored, skin p/w/d, iv flushed without difficulty, pt states no pain to R hip unless she moves it, a+ox4, fall precautions in place, will continue to monitor
[2019-12-16 05:15] VITALS: BP 131/59
[2019-12-16 07:51] VITALS: BP 140/68
[2019-12-16 10:10] LABS: HEMATOCRIT 33.1 % (37.0-47.0); HEMOGLOBIN 10.8 gm/dL (12.0-15.0); MCH 31.1 pg (26.0-34.0); MCHC 32.7 g/dL (28.0-37.0); MCV 95.1 fL (80.0-100.0); RBC 3.48 mil/uL (4.20-5.00); RDW 14.5 % (10.5-14.5); WBC 7.4 thou/uL (4.0-11.0)
[2019-12-16 10:22] LABS: CALCIUM 9.3 mg/dL (8.5-10.1); CREATININE 3.5 mg/dL (0.6-1.0)
--- NOTE | 2019-12-16 11:16 | NUR ---
PT RESTING IN BED. ALERT XS 4. HAS FISTULA TO LEFT ARM. PT HAS IV FLUIDS INFUSING. TOOK AM MEDS AND PRN PAIN MED.
[2019-12-16 13:07] LABS: FOLIC ACID > 100.0 ng/mL (8.6-58.9)
--- NOTE | 2019-12-16 15:14 | NUR ---
PT ADMITTED RELATED TO ACUTE ON CHRONIC RENAL FAILURE, PNEUMONIA, RT HIP PAIN. CM REVIEWED CHART AND SPOKE WITH CARE TEAM. CM MET WITH PT AT BEDSIDE THIS DAY. PT IS A&O X4. CM ROLE INTRODCUED. PT INDICATED SHE LIVES IN A HOUSE ALONE WITH 12 STEPS TO ENTER AND 4 TO THE BEDROOM. PT INDICATED THAT SHE HAS A CANE AND A 4WW WITH A SEAT TO ASSIST WITH MOBILITY. PT INDICATED SHE HAD BEEN TO 5N IN THE PAST AND THAT SHE HAD GONE HOME AND HAD [facility]. PT INDICATED SHE PLANS TO RETUNR HOME ONCE MEDICALLY STABLE. PT WORKED WITH PT AND THEY INDICATED THAT PT WOULD BE SAFE TO RETURN HOME ONCE MEDICALLY STABLE. CM TO FOLLOW INDICATED SHOULD ANY DC NEEDS ARISE.
--- NOTE | 2019-12-16 19:31 | NUR ---
CALLED CONSULT TO DR DALEY [phone]. DR AVENDANO WAS TO TO CALL DR THUY AVENDANO STATES PATIENT CAN DISCHARGE FROM HIS STAND POINT BUT HE WANTS DR ERASMO FRENCH'S INPUT.
[2019-12-16 19:40] VITALS: BP 129/51
[2019-12-17 04:30] VITALS: BP 134/61
[2019-12-17 06:03] LABS: ABSOLUTE NEUTROPHILS 3.4 thou/uL (1.4-8.2); BASOPHILS 0.5 % (0.0-2.0); EOSINOPHILS 1.9 % (0.0-3.0); HEMATOCRIT 30.4 % (37.0-47.0); MCH 31.4 pg (26.0-34.0); MCHC 32.9 g/dL (28.0-37.0); MCV 95.7 fL (80.0-100.0); MONOCYTES 11.1 % (1.0-8.0); PLATELET COUNT 152 thou/uL (150-400); POLYS 62.5 % (36.0-66.0); RBC 3.17 mil/uL (4.20-5.00); RDW 14.3 % (10.5-14.5); WBC 5.4 thou/uL (4.0-11.0)
--- NOTE | 2019-12-17 08:01 | NUR ---
1900 ASSUMED CARE OF PAT AFTER BEDSIDE REPORT. 1999 ASSESSMENT COMPLETED, IV DC'D AND NEW IV STARTED IN R WRIST INFUSING WITHOUT DIFFICULTY, PT UP TO BATHROOM WITH STANDBY ASSIST, FALL PRECAUTIONS IN PLACE. LCTAB, WITH NON PRODUCTIVE COUGH, RESP UNLABORED. COLOSTOMY WITH SCANT AMOUNT OF LIQUID, STOMA PINK AND APPROPRIATE, AV FISTULA TO LEFT ARM, LIMB ALERT PLACED ON LEFT ARM. WILL CONTINUE WITH HOURLY ROUNDING. STATES HIP IS FEELING MUCH BETTER. 12/17/19 0650 RAMIREZ KEN ENGINEERING MGR NOTIFIED OF NO OUTPUT FROM COLOSTOMY THIS SHIFT, ABDOMEN SOFT AND ROUND WITH BS ACTIVE X 4. 0745 BEDSIDE REPORT TO SERGEY ALVARADO
[2019-12-17 08:43] VITALS: BP 145/65
[2019-12-17 18:06] VITALS: BP 126/64
--- NOTE | 2019-12-17 20:05 | NUR ---
PT CARE ASSUMED AT 0700. A&Ox4. FISTULA IN PLACE FOR 1 1/2 YEARS THAT HAS NEVER BEEN USED BEFORE. IRRIGATED PT STOMA. HARD PIECE OF STOOL CAME OUT AND THEN X-LARGE AMOUNT OF LOOSE STOOL. COLOSTOMY BAG CHANGED OUT TWICE AFTER. RT TREATMENTS RECEIVED. PT WEARS HEARING AIDS AND READS LIPS. STAND BY ASSIST AND BED SIDE COMMODE. LEFT SIDE FORBIDDEN. IV PATENT WITH NO REDNESS OR EDEMA. FLUIDS INFUSING. FALL PROTOCOL IN PLACE. WILL CONTINUE TO MONITOR.
--- NOTE | 2019-12-17 22:22 | NUR ---
TRANSFERRED PT TO 4N AT 2150 ROOM 403.
[2019-12-17 22:29] VITALS: BP 119/63
--- NOTE | 2019-12-17 23:20 | NUR ---
PATIENT ARRIVED IN WHEELCHAIR WITH NURSE (YASMANI) TO ROOM 403 AT 2150. WALKED FROM W/C TO BED W/O COMPLICATION. PLEASANT AND COOPERATIVE. DENIES PAIN. NO SOA NOTED. IV INFILTRATED, ATTEMPT X2 BY THIS NURSE. IN SERVICE EDUCATOR NOTIFIED AND WILL ATTEMPT LATER. PATIENT RESTING QUIETLY. WILL MONITOR.
--- NOTE | 2019-12-18 04:10 | NUR ---
PATIENT ALERT AND ORIENTED X4. DENIES PAIN. IVF INFUSING W/O COMPLICATION AFTER NEW IV INSERTED DUE TO INFILTRATION. UP ADLIB WITH SOME SBA DUE TO IV POLE. COLOSTOMY WITH DARK BROWN SOFT STOOL. RESTING QUIETLY. WILL MONITOR.
[2019-12-18 06:54] LABS: ALBUMIN 2.6 g/dL (3.4-5.0); CALCIUM 9.3 mg/dL (8.5-10.1); CREATININE 2.7 mg/dL (0.6-1.0); POTASSIUM 3.8 mmol/L (3.5-5.1)
[2019-12-18 07:06] VITALS: BP 133/56
[2019-12-18 13:19] VITALS: BP 133/57
--- NOTE | 2019-12-18 16:57 | NUR ---
PT COMPLAINED OF PAINT IV SITE SHORT AFTER DOXY WAS STARTED. SITE LOOKS REDDENED. IV REMOVED. PT REFUSED TO HAVE ANOTHER IV PUT IN. STATES SHE IS GOING TO DRINK A LOT OF WATER. EXPLAINED TO PATIENT THAT NS WAS BETTER TO REHYDRATED HER KIDNEYS THAN PURE WATER. SHE UNDERSTOOD THE IMPORTANCE OF NS BUT STILL DECLINED TO HAVE ANOTHER IV INSSERTED. DR AVENDANO NOTIFIED. SHE HAS HAD NUMEROUS STOOLS ( VIA COLOSTOMY) TODAY. EMPTIES IT HERSELF WITH STAND BY ASSIST.
[2019-12-18 19:16] VITALS: BP 131/63
--- NOTE | 2019-12-19 04:06 | NUR ---
PATIENT ALERT AND ORIENTED X4. UP ADLIB IN ROOM. NO IV ACCESS AT THIS TIME PATIENT DID NOT WANT ANOTHER IV STARTED. IVF WAS DISCONTINUED. POSSIBLE DISCHARGE TODAY. NO C/O PAIN. COLOSTOMY WITH SOFT BROWN STOOL. RESTING QUIETLY. WILL MONITOR.
[2019-12-19 07:08] LABS: ALBUMIN 2.5 g/dL (3.4-5.0); CALCIUM 9.8 mg/dL (8.5-10.1); CREATININE 2.8 mg/dL (0.6-1.0); PHOSPHORUS 4.6 mg/dL (2.5-4.9); POTASSIUM 3.9 mmol/L (3.5-5.1)
[2019-12-19 07:32] VITALS: BP 120/61
--- NOTE | 2019-12-19 09:01 | NUR ---
OSTOMY CARE pouch edges loose, new pouch benny 2 piece system applied w/ adapt ring under wafer, small augusto area outer edge of tape on wafer, skin prep applied, stoma pink viable flat w/ skin surface, loose dark brown stool noted, stoma 1', informed pt she could order precut pouches now as stoma is mature, verbal understanding and given this [facility] nurse phone # to call if assist needed in getting precut pouches, verbal understanding, supplies placed at bs
[2019-12-19] MEDS ORDERED: MUCINEX600 MG PO (10:20)
[2019-12-19] MEDS ORDERED: ACETAMINOPHEN325 M1 PO (10:20)
[2019-12-19] MEDS ORDERED: DOXYCYCLINE 10100 M2 PO (10:20)
[2019-12-19 11:52] VITALS: BP 120/61
--- NOTE | 2019-12-19 12:29 | NUR ---
DISCHARGE PLANNING. ANTICIPATED DISCHARGE TODAY. HOME WITH HOME HEALTH SERVICES. PATIENT REFERRAL FAXED TO [facility] PER REQUEST. AWAITING RESPONSE FROM [facility] INTAKE.
--- NOTE | 2019-12-19 15:40 | NUR ---
DISCHARGE NOTE: SW reviewed chart and spoke with nursing and attending physician. Pt was transferred to [facility] and is medically stable for discharge home with HH today. SW met with pt and dtr at bedside to provide update. Both are aware and agreeable with discharge. Pt has used [facility] in the past and would like to use them again. telecommunications network planner faxed HH referral and discharge orders/summary to HH. Contact info for HH in discharge summary. Pt's family to provide transportation home. No additional SW needs identified at this time, but is available to assist should needs arise.
== END 2019-12-19 14:18 | disposition home health service (06) | DRG 682 ==
LOC: ER 17:12 → EROBS 22:59 → 4S 22:59 → 4N 12-17 22:24 → ENTRNSPT 12-19 13:57 → EDTRNSPTSTS 12-19 14:01 → 4N 12-19 14:18
PROVIDERS: Emergency Medicine Emergency Medical Services; Hospitalist; Nurse Practitioner Family; ADMIT Internal Medicine
DX: N17.9 Acute kidney failure, unspecified (principal); J18.9 Pneumonia, unspecified organism; Q87.81 Alport syndrome; I12.0 Hypertensive chronic kidney disease with stage 5 chronic kidney disease or end stage renal disease; M35.00 Sjogren syndrome, unspecified; F41.9 Anxiety disorder, unspecified; E03.9 Hypothyroidism, unspecified; E78.5 Hyperlipidemia, unspecified; M10.9 Gout, unspecified; M19.90 Unspecified osteoarthritis, unspecified site; I25.10 Atherosclerotic heart disease of native coronary artery without angina pectoris; M32.9 Systemic lupus erythematosus, unspecified; M25.551 Pain in right hip; E86.0 Dehydration; G40.909 Epilepsy, unspecified, not intractable, without status epilepticus; D63.8 Anemia in other chronic diseases classified elsewhere; K59.00 Constipation, unspecified; E53.8 Deficiency of other specified B group vitamins; G47.00 Insomnia, unspecified; Z93.3 Colostomy status; N18.6 End stage renal disease; Z90.710 Acquired absence of both cervix and uterus; Z79.82 Long term (current) use of aspirin; Z86.73 Personal history of transient ischemic attack (TIA), and cerebral infarction without residual deficits; Z98.42 Cataract extraction status, left eye; Z98.41 Cataract extraction status, right eye; Z90.49 Acquired absence of other specified parts of digestive tract; Z99.2 Dependence on renal dialysis; Z79.899 Other long term (current) drug therapy; Z88.5 Allergy status to narcotic agent; Z88.0 Allergy status to penicillin; Z88.8 Allergy status to other drugs, medicaments and biological substances
CPT/HCPCS: 10091; 10195

== ENCOUNTER → 2020-03-26 | Outpatient (CLI) | payer OTHER, MEDICARE ==
[~2020-03-26] VITALS: Ht 162.6 cm; Wt 68.0 kg
[~2020-03-26] MED LIST changes: +ACETAMINOPHEN325 M1 PO; +ASPIRIN EC325 M1 PO; +DOXYCYCLINE 10100 M2 PO; +MIRALAX119 GM PO; +MUCINEX600 MG PO; +NORVASC5 M1 PO; +TOPROL XL50 MG PO
--- NOTE | 2020-03-27 17:07 | PATH ---
[facility] [place] [address] PATHOLOGY RPT PROCEDURE Name: RAFAEL LANGFORD Room #: REG JB Forde.#: [id number] Admission: 03/26/20 Date of : 49 Discharge: Report #: [id number] Path Case #: [id number] LCA Accession Number: [id number] . 01 Material submitted: . PART A: colon - POLYP AT ASCENDING COLON. Modifiers: ascending PART B: colon - RANDOM BIOPSY OF COLON R/O COLITIS PART C: splenic flexure - POLYP AT SPLENIC FLEXURE . 02 Diagnosis: A. Polyp, ascending colon, endoscopic biopsy: - Tubular adenoma. - Negative for high-grade dysplasia. . B. Large intestinal, random colon to rule out colitis, endoscopic biopsy: - Mild focal active colitis, see comment. - Negative for dysplasia or malignancy. - Negative for microscopic colitis. . C. Polyp, at splenic flexure, endoscopic biopsy: - Reactive hyperplastic polyp. - Negative for dysplasia. . (IUV:kemi; 03/27/2020) MBR 03/27/2020 1408 Local . 02 Comment: B. Sections of the colonic mucosa designated "random" show focal cryptitis, and a moderately cellular lamina propria composed predominantly of lymphocytes and plasma cells and occasional eosinophils. Surface ulceration is not identified. There are no crypt abscesses, granulomas or viral inclusions. The process affects all the fragments with a similar intensity. Given the description, the differential diagnosis includes focal self-limited episode of acute colitis, mild infectious-type of colitis, medication/drug induced colitis, as well as acute diverticulitis. Please correlate with clinical as well as endoscopic findings. (IUV:residential counselor; 03/27/2020) . 02 Electronically signed: . Jennifer Bello MD, Pathologist NPI- [id number] . 01 Gross description: . A. The specimen is received in formalin labeled "Rafael Langford, polyp at ascending colon" and consists of a fragment of pink-do tissue measuring 0.3 x 0.3 x 0.3 cm which is entirely submitted [place] [address] PATHOLOGY RPT PROCEDURE Name: RAFAEL LANGFORD DAV Room #: REG CLUriah Giles#: [id number] Admission: 03/26/20 Date of : 49 Discharge: Report #: [id number] Path Case #: [id number] B. The specimen is received in formalin labeled "Harmargarita, Rafael, random BX of colon rule out colitis" and consists of a fragment of pink-do tissue measuring 0.3 x 0.3 x 0.3 cm which is entirely submitted in B1. . C. The specimen is received in formalin labeled "Harkey, Rafael, polyp at splenic flexure" and consists of a fragment of do tissue measuring 0.3 x 0.2 x 0.2 cm which is entirely submitted in C1. (FLO; 03/26/2020) LUHQ/TALIB 03/26/20202010 Local . 02 Pathologist provided ICD-10: D12.2, K52.9, K63.5 . 02 CPT . 702012, 038255, 301820 Specimen Comment: A courtesy copy of this report has been sent to [phone] Specimen Comment: [phone] Specimen Comment: Report sent to / DR PENALOZA Performed at: 01 [facility] [address] [place] [address] [address], [place], [place] [id number] MD Tulio Franklin MD Phone: [phone] Performed at: [address] [id number] MD Jennifer Bello MD Phone: [phone]
== END | disposition home or self-care (01) ==
LOC: GI 11:31
PROVIDERS: ATTEND Internal Medicine Gastroenterology
DX: D12.2 Benign neoplasm of ascending colon (principal); K52.9 Noninfective gastroenteritis and colitis, unspecified; K57.30 Diverticulosis of large intestine without perforation or abscess without bleeding; I13.2 Hypertensive heart and chronic kidney disease with heart failure and with stage 5 chronic kidney disease, or end stage renal disease; N18.5 Chronic kidney disease, stage 5; I50.9 Heart failure, unspecified; E78.00 Pure hypercholesterolemia, unspecified; E03.9 Hypothyroidism, unspecified; I25.10 Atherosclerotic heart disease of native coronary artery without angina pectoris; M19.90 Unspecified osteoarthritis, unspecified site; Z93.3 Colostomy status; Z98.890 Other specified postprocedural states; Z79.899 Other long term (current) drug therapy; Z11.59 Encounter for screening for other viral diseases; Z90.710 Acquired absence of both cervix and uterus; Z85.43 Personal history of malignant neoplasm of ovary; Z98.41 Cataract extraction status, right eye; Z98.42 Cataract extraction status, left eye; Z94.7 Corneal transplant status; Z80.0 Family history of malignant neoplasm of digestive organs; Z80.1 Family history of malignant neoplasm of trachea, bronchus and lung
CPT/HCPCS: 62110; 62900

== ENCOUNTER → 2020-08-14 | Outpatient (CLI) | payer OTHER, MEDICARE ==
[~2020-08-14] MED LIST changes: +COREG6.25 MG PO
== END ==
LOC: LAB 14:09
PROVIDERS: ATTEND Surgery
DX: Z01.812 Encounter for preprocedural laboratory examination (principal); Z20.828 Contact with and (suspected) exposure to other viral communicable diseases

== ENCOUNTER 2020-08-20 09:59 | Inpatient (IN) | payer OTHER, MEDICARE ==
[~2020-08-20] VITALS: Ht 162.6 cm; Wt 72.1 kg
[2020-08-20 10:24] VITALS: BP 169/81
[2020-08-20 11:48] LABS: HEMATOCRIT 37.4 % (37.0-47.0); HEMOGLOBIN 12.4 gm/dL (12.0-15.0); MCH 32.1 pg (26.0-34.0); MCHC 33.1 g/dL (28.0-37.0); RBC 3.85 mil/uL (4.20-5.00); RDW 14.3 % (10.5-14.5); WBC 5.5 thou/uL (4.0-11.0)
[2020-08-20 11:54] LABS: CALCIUM 9.3 mg/dL (8.5-10.1); CREATININE 3.7 mg/dL (0.6-1.0)
[2020-08-20 11:55] LABS: POTASSIUM 4.4 mmol/L (3.5-5.1)
[2020-08-20 12:00] LABS: ALBUMIN 3.5 g/dL (3.4-5.0); TOTAL BILIRUBIN 0.7 mg/dL (0.2-1.0); TOTAL PROTEIN 7.4 g/dL (6.4-8.2)
--- NOTE | 2020-08-20 16:58 | NUR ---
PT ARRIVED ON UNIT 1600, PT WAS SLEEPING AND EASILY AROUSED. PT DENIES PAIN AT THIS TIME, VSS. PT HAS 4 LAP SITES AND ONE SITE WITH 4X4. DRESS IS CDI, WAGGONER CATHETER IS PATENT. IV IN RIGHT HAND IS 20G WITH FLUIDS RUNNING. PT HAS LEFT SIDE FISTULA WITH POSITIVE THTILL. SCDS ARE ON BLE, PT REMAINS NPO, FALL PRECAUTIONS IN PLACE. CALL LIGHT IN REACH, WILL CONTINUE TO MONITOR.
[2020-08-20 19:41] VITALS: BP 106/569
--- NOTE | 2020-08-21 03:39 | NUR ---
PT WAS SLEEPING ON HER BED AT SHIFT CHANGE.PT C/O GEN ABD PAIN,MANAGED WITH PO MED.PT HAS 5 LAP SITES COVERED WITH DERMABOND.SITE FOR HER PREVIOUS COLOSTOMY COVERED WITH ABD AND TAPE.DRIED DRAINAGE NOTED ON THE DRSG.FISTULA ON HER L ARM POSITIVE FOR THRILL AND BRUIT.LIMB ALERT TO HER L ARM.WAGGONER CATH TO DD.CALL LIGHT WITHIN REACH.
[2020-08-21 04:56] VITALS: BP 138/54
[2020-08-21 05:32] LABS: HEMATOCRIT 31.7 % (37.0-47.0); HEMOGLOBIN 10.6 gm/dL (12.0-15.0); MCH 32.6 pg (26.0-34.0); MCHC 33.5 g/dL (28.0-37.0); MCV 97.5 fL (80.0-100.0); RBC 3.25 mil/uL (4.20-5.00); RDW 14.3 % (10.5-14.5); WBC 10.1 thou/uL (4.0-11.0)
[2020-08-21 05:45] LABS: ALBUMIN 2.6 g/dL (3.4-5.0); CALCIUM 8.1 mg/dL (8.5-10.1); CREATININE 3.6 mg/dL (0.6-1.0); MAGNESIUM 1.8 mg/dL (1.8-2.4); PHOSPHORUS 4.7 mg/dL (2.5-4.9); POTASSIUM 4.2 mmol/L (3.5-5.1)
[2020-08-21 07:33] VITALS: BP 139/63
[2020-08-21 07:54] LABS: URINE BILIRUBIN NEGATIVE (Negative); URINE BLOOD 2+ (Negative); URINE CLARITY CLEAR; URINE COLOR YELLOW; URINE GLUCOSE-RANDOM* NEGATIVE (Negative); URINE KETONES NEGATIVE (Negative); URINE LEUKOCYTES NEGATIVE (Negative); URINE NITRITE NEGATIVE (Negative); URINE PROTEIN (DIPSTICK) 3+ (Negative); URINE SPECIFIC GRAVITY >= 1.030 (1.005-1.035); URINE UROBILINOGEN 0.2 E.U./dl (0.2-1.0)
[2020-08-21 08:00] LABS: PROT/CREAT RATIO 1.5; URINE PROTEIN-RANDOM* 244.9 mg/dL (<11.9)
[2020-08-21 08:12] LABS: MUCUS 4-6 Moderate strn/LPF (None Seen); SQUAMOUS 0-3 Few /LPF (0-3)
[2020-08-21 08:13] LABS: FINE GRANULAR CASTS 4-10 Moderate /LPF (None Seen)
[2020-08-21 08:14] LABS: URINE RBC 3-10 Few /HPF (0-2); URINE WBC 6-15 Few /HPF (0-5)
[2020-08-21 08:15] LABS: AMORPHOUS URATES Few /LPF (None Seen); WBC CLUMPS Few (None Seen)
--- NOTE | 2020-08-21 10:49 | NUR ---
Patient reports she is feeling better than she thought she would today. She is hopeful that she will discharge in time for her first grandson to be born. She has pain when she sits up or moves, but has no pain when still. Patient has crackles in the right lower lung field, will continue to monitor.
--- NOTE | 2020-08-21 11:43 | NUR ---
I have reviewed the student documentation.
--- NOTE | 2020-08-21 13:40 | NUR ---
ASSESSMENT: CM REVIEWED CHART AND MET WITH PT AT THE BEDSIDE. PT IS S/P LAP COLECTOMY. PT REPORTS LIVING IN A HOUSE BY HERSELF. PT REPORTS ABOUT 4 STEPS WITH HANDRAILS TO HE BEDROOM AND 10 STEPS WITH HANDRAILS TO THE LOWER LEVEL. PT REPORTS THAT SHE HAS A CANE SHE USES AT TIMES OUTSIDE THE HOME WELL A WALKER BUT STATES WHEN SHE IS AT HOME SHE NORMALLY AMBULATES INDEPENDENTLY. PT REPORTS HAVING [facility] IN THE PAST BUT NOT CURRENTLY. CM DISCUSSED ROLE. PT DOES NOT ANTICIPATE HAVING ANY NEEDS FROM CM AT DISCHARGE. CM WILL CONTINUE TO FOLLOW TO ASSIST NEEDED.
[2020-08-21 15:16] VITALS: BP 114/59
[2020-08-21 19:42] VITALS: BP 136/67
--- NOTE | 2020-08-22 04:08 | NUR ---
Care assumed of patient at 2300: Patient resting quietly in bed. Patient reported pain rated 2/10 to abdomen. Dressing C/D/I. Freeman cath to DD, draining yellow colored urine. Fluids infusing R FA IV. Patient has passed gas this shift. Patient able to sleep quietly throughout the night without issue or concern to report. Will continue to follow plan of care.
[2020-08-22 04:47] VITALS: BP 125/94
[2020-08-22 05:55] LABS: ALBUMIN 2.7 g/dL (3.4-5.0); CALCIUM 8.4 mg/dL (8.5-10.1); PHOSPHORUS 5.1 mg/dL (2.5-4.9); POTASSIUM 4.5 mmol/L (3.5-5.1)
[2020-08-22 06:01] LABS: CREATININE 4.6 mg/dL (0.6-1.0)
[2020-08-22 07:32] VITALS: BP 130/65
--- NOTE | 2020-08-22 13:09 | NUR ---
ON-GOING ASSESSMENT: PT IS SLOWLY PROGRESSING TOWARDS DISCHARGE GOALS BUT DERRICK BOAT LEVERMAN IS ELEVATED. PT NOT STABLE FOR DISCHARGE THIS DAY. CM WILL CONTINUE TO FOLLOW.
[2020-08-22 15:40] VITALS: BP 123/55
--- NOTE | 2020-08-22 17:06 | PATH ---
[facility] [address] [place] [address] PATHOLOGY RPT PROCEDURE Name: RAFAEL CONNELLY Room #: 447-P ADM IN M.R.#: [id number] Admission: 08/20/20 Date of : 49 Discharge: Report #: [id number] Path Case #: [id number] LCA Accession Number: [id number] . 01 Material submitted: . PART A: colon - ANASTOMOTIC RINGS PART B: abdomen - COLOSTOMY . 01 Clinical history: . PERFORATED DIVERTICULITIS INCISIONAL HERNIA . 02 Diagnosis: A. Anastomotic rings: - Fragments lined by large intestine mucosa showing reactive changes, compatible with anastomotic rings. . B. Colostomy: - Large intestine mucosa adjacent to skin consistent with colostomy. - Reactive/reparative changes. . (IUV:kemi; 08/22/2020) MBJocy 08/22/2020 1417 Local . 02 Electronically signed: . Jennifer Bello MD, Pathologist NPI- [id number] . 01 Gross description: . A. The specimen is received in formalin, labeled "Anastasiya, Rafael, anastomotic rings" and consists of 2 segments of do-brown mucosal tissue consistent with anastomotic rings measuring 1.4 x 1.0 x 0.5 cm and 1.4 x 0.9 x 0.9 cm. Asp Developer sections from each is submitted in A1. . B. The specimen is received in formalin, labeled "Anastasiya, Rafael, colostomy" and consists of a possibly specimen measuring 3.7 x 3.5 x 2.1 cm. There is bulging do brown mucosa surrounded by a thin ring of pink skin section reveals a pink-do mucosa with no gross lesions. It small business sales representative tissue is submitted in B1. (SDY; 08/21/2020) SYU/SYU 08/21/2020 1700 Local . 02 Pathologist provided ICD-10: K57.20, K43.2 . 02 CPT . 629729, [id number] [address] [address] PATHOLOGY RPT PROCEDURE Name: SIMBARAFAEL GERMAIN DAV Room #: 447-P [facility] IN .R.#: [id number] Admission: 08/20/20 Date of : 49 Discharge: Report #: [id number] Path Case #: [id number] Specimen Comment: A courtesy copy of this report has been sent to [phone] Specimen Comment: [phone] Specimen Comment: Report sent to DR MORRISSEY,DR PENALOZA / DR BRASWELL Performed at: [address], [place], [place] [id number] MD Rui Urbina MD Phone: [phone] Performed at: [address] [id number] MD Jennifer Bello MD Phone: [phone]
[2020-08-22 20:38] VITALS: BP 127/63
--- NOTE | 2020-08-22 21:00 | NUR ---
ASSUMED CARE OF PT AT 0700. PT IS A&OX4 AND VITAL SIGNS ARE STABLE. PT REPORTED PERIODIC PAIN 2/10 TO ABDOMEN, MANAGED WTIH PO MEDICATIONS. PT REFUSES TO HAVE WAGGONER CATHETER REMOVED UNTIL SHE FEELS CONFIDENT THAT SHE WILL BE ABLE TO AMBULATE TO THE RESTROOM. PT TOLERATED AMBULATION IN ROOM WITH STAFF THIS AFTERNOON. IV TO RIGHT WRIST INTACT AND FLUSHES APPROPRIATELY. PER DR YUNI BEST FOR NURSING TO CHANGE ABDOMINAL DRESSING AND REPLACE WITH GAUZE AND TAPE. PT REPORTS NO BOWEL MOVEMENT BUT IS PASSING GAS. FALL PRECAUTIONS IN PLACE AND NURSING WILL CONTINUE TO MONITOR.
--- NOTE | 2020-08-23 01:44 | NUR ---
assumed care approx 1900 evening 08/22. pt lying in bed dozing off and on at shift change. hernandez to dd with clear yellow urine to bag. pt alert and oriented 4, pleasant and cooperative. pt took meds with water tolerating well. abd dressing c/d/i. pt appears to be sleeping soundly with hourly rounding checks. bed alarm on and call light in reach. will continue to monitor.
[2020-08-23 05:29] LABS: HEMATOCRIT 30.4 % (37.0-47.0); MCH 32.7 pg (26.0-34.0); MCHC 32.9 g/dL (28.0-37.0); MCV 99.3 fL (80.0-100.0); RBC 3.07 mil/uL (4.20-5.00); RDW 14.7 % (10.5-14.5); WBC 6.9 thou/uL (4.0-11.0)
[2020-08-23 05:40] VITALS: BP 123/67
[2020-08-23 05:51] LABS: ALBUMIN 2.5 g/dL (3.4-5.0); CALCIUM 8.6 mg/dL (8.5-10.1); POTASSIUM 4.6 mmol/L (3.5-5.1)
[2020-08-23 07:40] VITALS: BP 138/60
--- NOTE | 2020-08-23 17:20 | NUR ---
PT ASSESSED AT START OF SHIFT. PAIN MINIMAL. AMBULATED W/ THERAPY AND DID WELL. SAT UP IN THE CHAIR FOR SEVERAL HOURS. NO DRAINAGE ON LT KNEE DSNG. USING POLAR PAULA. SCD'S AND TEDS. STATES SHE'S STARTING OUT PT THERAPY TOMOORROW. DISCHARGE TEACHING DONE AND PT LEAVING AT THIS TIME.
--- NOTE | 2020-08-23 17:52 | NUR ---
PT ASSESSED AT START OF SHIFT. PT STATES NO PAIN W/ MILD INCISIONAL DISCOMFORT. DIET ADVANCED TO FULL LIQUIDS AND TOLERATING WELL. SEVERAL LIQUID/MUCOUSY STOOLS. WAGGONER DC'D THIS AFTERNOON W/ CLEAR, YELLOW URINE. PT TRANSFERRED TO THE CHAIR AT 1500 AND WILL AMBULATE THE HALLS AFTER DINNER. DSNG CHANGED OVER OLD STOMA AREA. GAUZE IN PLACE INSIDE OF INSCISION FOR DRAINAGE. SMALL AMT SS DRAINAGE. NO FOUL ODOR.
[2020-08-23 19:44] VITALS: BP 138/72
[2020-08-24 05:53] LABS: ALBUMIN 2.5 g/dL (3.4-5.0); CALCIUM 8.7 mg/dL (8.5-10.1); CREATININE 3.3 mg/dL (0.6-1.0); PHOSPHORUS 3.5 mg/dL (2.5-4.9); POTASSIUM 4.3 mmol/L (3.5-5.1)
--- NOTE | 2020-08-24 07:15 | NUR ---
ASSUMED PT CARE AROUND 1930. AXOX3. FLANDREAU. VSS. VOIDED POST WAGGONER REMOVAL. IV INFILTRATED IN AM. PT HD PT, UNABLE TO OBTAIN A LINE ON R ARM. WILL ENDORSE FOR VAT TO EVALUATE IN AM. NO S/S ACUTE DISTRESS NOTED OR REPORTED AT THIS TIME. WILL CONT TO MONITOR FOR ANY CHANGES IN CONDITION.
[2020-08-24 07:30] VITALS: BP 164/70
--- NOTE | 2020-08-24 08:12 | HC ---
[facility] [place] [address] CONSULTATION Name: RAFAEL CONNELLY DAV Room #: 447-P ADM IN M.R.#: [id number] Admission: 08/20/20 Attend Phys: Malik Osborn MD Discharge: Date of : 49 Report #: [id number] THIS REPORT FOR: cc: Unique Romero MD, Lisa A. MD Al-Amparo,Carlitos Noland MD ~ REASON FOR CONSULTATION: Elevated creatinine. REASON FOR PRESENTATION: Reversal of her colostomy. HISTORY OF PRESENT ILLNESS: This is a very well-known patient to me. She is a 75-year-old with past medical history of chronic kidney disease, maintained on regular routine followup for her chronic kidney disease by one of the [facility] physician scribe. Baseline creatinine is usually in the upper 2 range. She was admitted for reversal of her colostomy yesterday. Creatinine was marginally elevated above her baseline and I was consulted to assist with the management of her chronic kidney disease. 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 She has an AV fistula that was placed a while ago, but she was not initiated on hemodialysis. She had a perforated diverticulitis, back in 07/2020, and required colostomy. She was admitted yesterday and had a reversal of her colostomy. MEDICATIONS: 1. Amlodipine. 2. Levothyroxine. 3. Aspirin. 4. Sodium bicarbonate. 5. Carvedilol. PAST MEDICAL AND SURGICAL HISTORY: 1. Uterine cancer, post-hysterectomy. 2. Lumbar diskectomy. 3. Alport syndrome. 4. Stage 5 chronic kidney disease, not requiring hemodialysis. 5. Hypothyroidism. 6. Post-CVA. 7. Post-diverticulitis with an abscess formation, requiring colostomy. 8. Coronary artery disease. ALLERGIES: PENICILLIN. FAMILY HISTORY: Significant for hypertension. SOCIAL HISTORY: Denies drug or alcohol abuse. [facility] [address] [place] [address] CONSULTATION Name: SIMBARAFAEL GERMAIN Room #: 447-P [facility] ..#: [id number] Admission: 08/20/20 Attend Phys: Malik Osborn MD Discharge: Date of : 49 Report #: [id number] REVIEW OF SYSTEMS: GENERAL: No fever or chills. CARDIOVASCULAR: No chest pain or palpitation. PULMONARY: No cough or hemoptysis. GASTROINTESTINAL: No nausea or vomiting. GENITOURINARY: No frequency, no urgency. MUSCULOSKELETAL: Occasional myalgias. NEUROLOGICAL: No headache, no dizziness. PHYSICAL EXAMINATION: VITAL SIGNS: Temperature 36.7, pulse rate 88, respiratory rate 20, blood pressure is 139/____. HEAD AND NECK: No jugular venous distention. CHEST: Decreased air entry bilaterally. CARDIOVASCULAR: No rub. ABDOMEN: Soft, nontender. With postoperative surgical scars. LOWER EXTREMITIES: No edema. LABORATORY DATA: Sodium 143, potassium 4.2, chloride 113, carbon dioxide 19, BUN is 44, creatinine is 3.6. ASSESSMENT AND PLAN: 1. Acute kidney injury. 2. Chronic kidney disease. 3. History of diverticular rupture and abscess post-emergent colostomy on 08/07/2019, status post colostomy reversal. 4. She does have fluctuating renal values based on her overall condition. Creatinine is slightly above her baseline. Continue with the hydration at this time. 5. Continue to monitor renal function. 6. Encourage oral intake per surgical team. Keep on her renal related medications including sodium bicarbonate and Renvela. 7. I am not really sure why is the patient on 2 kinds of fluids including D5 half normal and normal saline. We will discontinue the normal saline and keep on the D5 half normal for now. <ELECTRONICALLY SIGNED> By: Carlitos Prescott MD 08/24/2012 0751 08 Carlitos Prescott MD /nt
--- NOTE | 2020-08-24 11:39 | NUR ---
PT A&OX4, VSS, DENIES PAIN. ABDOMEN SOFT, DISTENDED, ACTIVE SOUNDS. DRESSING ON ABDOMEN C/D/I. FISTULA LEFT ARM INTACT. NO IV ACCESS, WAGGONER REMOVED PREVIOUSLY, DOCTOR AWARE. PATIENT POSSIBLE DISCHARGE 08/25. NO SIGNS OF DISTRESS. WILL CONTINUE TO MONITOR.
--- NOTE | 2020-08-24 15:50 | NUR ---
SPOKE WITH PATIENT REGARDING DC PLANNING. SHE REPORTS SHE HAS REC HOME HEALTH IN PAST AND DOES NOT FEEL NEEDED OR WANTED AT DC. [facility] REFERRAL TO THEM IF DC OVERWEEKEND AND HOME HEALTH ORDERED. ALSO THERAPY EVALS ORDERED. IF DC OVER WEEKEND AND HOME HEALTH ORDERED CALL [facility] [phone] ALERT OF DISCHARGE FAX ORDERS TO [phone]. PLEASE GIVE PATIENT HOME HEALTH NUMBER AND ADD IN DC INSTRUCTIONS.
[2020-08-24 16:45] VITALS: BP 154/61
[2020-08-24 20:04] VITALS: BP 138/53
[2020-08-24 22:14] VITALS: BP 138/53
[2020-08-25 05:20] VITALS: BP 131/62
[2020-08-25 05:45] VITALS: BP 117/65
--- NOTE | 2020-08-25 06:48 | NUR ---
PT AOX4, HARD OF HEARING, HEARING AIDES AT BEDSIDE. PT DENIES PAIN. PT RECEIVING SCHEDULED APAP WITH PRN IV DILAUDID Q2HR AND PRN IV ATIVAN Q6HR AVAILABLE. PT WITHOUT IV ACCESS UPON ASSUMPTION OF CARE. PT NOTED TO HAVE RED, BUMPY RASH THROUGHOUT BODY. PT REPORTS ITCHING. ONCJOANN PAYNE NOTIFIED, RECEIVED ORDERS FOR PRN IV BENADRYL Q6HR. IV PLACED IN RIGHT AC ON FIRST ATTEMPT, MAINTAINED WITH SALINE LOCK. PT TOLERATING PO INTAKE OF FLUIDS AND RENAL DIET WITHOUT ISSUE. PT AMBULATING WITH STANDBY ASSIST TO BEDSIDE COMMODE. FREQUENT REPOSITIONING ENCOURAGED. PT NOTED TO SHIFT INDEPENDENTLY WHILE IN BED. PT ENCOURAGED TO NOTIFY STAFF FOR ALL NEEDS. CALL LIGHT WITHIN REACH, BED ALARM ON, BED IN LOWEST POSITION, FREQUENT MONITORING WILL CONTINUE.
[2020-08-25 07:58] VITALS: BP 136/66
[2020-08-25 15:10] VITALS: BP 151/61
--- NOTE | 2020-08-25 18:29 | NUR ---
Assumed care of pt. at 0700. Pt. was calm and cooperative. Pt. complained of itchiness. Dr. Powell sighted it may be the Alvimopan and DC'd the medication. Dr. Ye DC'd IV. Pt. does not complain of pain. Pt. will most likely discharge 08/26/20.
[2020-08-25 19:43] VITALS: BP 148/61
--- NOTE | 2020-08-26 02:39 | NUR ---
ASSUMED PT CARE AT 1915. PT IS A&OX4. PT DOES NOT HAVE AN IV ACCESS.PT IS ON ROOM AIR. LUNG SOUNDS ARE CLEAR. PT IS VOIDING USING THE BSC. PT HAD ONE EPISODE OF INCONTINENCE. PT HAD A SMALL BM. PT COMPLAINS OF ITCHING. PT HAS HIVES/BUMPS ALL OVER HER BODY. I GAVE THE PT A BED BATH. PT STATES THAT SHE GOT SOME RELIEF. PT TAKES MEDICATION WHOLE. PT DENIES PAIN. PT IS A SBA. I SPOKE WITH RAMIREZ AND AND SHE PUT IN AN ORDER FOR TOPICAL DIPHENHYDRAMINE. SHE STATES THAT THE ORAL BENADRYL HAS NOT BEEN GIVING ANY RELIEF. PT CALLS OUT APPROPRIATELY WHEN SHE NEEDS HELP. WILL CONTINUE TO MONITOR.
[2020-08-26 04:00] VITALS: BP 124/45
[2020-08-26 06:09] LABS: HEMATOCRIT 33.6 % (37.0-47.0); HEMOGLOBIN 11.2 gm/dL (12.0-15.0); MCH 32.6 pg (26.0-34.0); MCHC 33.4 g/dL (28.0-37.0); MCV 97.7 fL (80.0-100.0); RBC 3.44 mil/uL (4.20-5.00); RDW 14.3 % (10.5-14.5); WBC 5.1 thou/uL (4.0-11.0)
[2020-08-26 06:35] LABS: CALCIUM 8.5 mg/dL (8.5-10.1); CREATININE 3.7 mg/dL (0.6-1.0); POTASSIUM 4.5 mmol/L (3.5-5.1)
--- NOTE | 2020-08-26 18:21 | NUR ---
PT IS AOX4, VSS, ITCHING IS CONTROLLED WITH CREAM AND BENEDRYL. PT DENIES PAIN AT THIS TIME. PT CALLS APPROPRIATELY, INCONTINENT OF URINE. EXTERNAL CATHETER PLACED. PT RECEIVED A BATH. PT IS UP WITH STAND BY ASSIST TO BSC. CALL LIGHT IN REACH WILL CONTINUE TO MONITOR.
[2020-08-26 19:47] VITALS: BP 140/67
[2020-08-27 00:31] VITALS: BP 133/54
[2020-08-27 00:38] VITALS: BP 147/41
[2020-08-27 05:11] VITALS: BP 139/65
--- NOTE | 2020-08-27 06:35 | NUR ---
ASSUMED PT CARE AT 1915. PT IS A&OX4. VSS. PT CALLS OUT APPROPRIATELY. PT HAS A RASH/PRURITUS ON HER BACK, NECK, THIGHS AND ARMS. PT STATES THAT SHE STILL ITCHES EVEN WITH THE TOPICAL OINTMENT. PT IS A SBA TO THE BSC. PT HAS BLOOD IN HER STOOL. I NOTIFIED THE RETAIL EXPERIENCE SPECIALIST - NO ANSWER. WILL RELAY TO THE DAY NURSE. PT DENIES PAIN. WILL CONTINUE TO MONITOR.
[2020-08-27 07:03] VITALS: BP 150/69
--- NOTE | 2020-08-27 07:59 | NUR ---
ASSUMED CARE AT 0700. PT IS A&O X4. PT DENIES ANY PAIN. NIGHT NURSE, MECHELLE, HAS INFORMED THAT PT HAS BM LAST NIGHT WITH LITTLE OF BLOOD. WILL CONTINUE TO MONITOR FOR BM OF BLOOD. NO IV ASSESS. PT IS STILL COMPLAINING OF ITCHNESS. PT HAS RASH THROUGHOUT HER BACK, THIGH AND ARM. THE GAUZE WITH TAPE HAS NO SIGN OF BLEEDING OR SWELLING. FALL PRECAUTION. CALL LIGHT WITHIN REACH. STANDBY ASSIST WITH BEDSIDE COMMODE.
--- NOTE | 2020-08-27 15:00 | NUR ---
PT INFORMED CM SHE WANTED [facility] AT D/C. HOWEVER PT CALLED CM BACK TO HER ROOM AND STATED SHE DOES NOT WANT HOME HEALTH AT THIS TIME.
[2020-08-27 15:28] VITALS: BP 136/60
[2020-08-27 19:39] VITALS: BP 130/55
--- NOTE | 2020-08-28 00:24 | NUR ---
Care assumed of patient at 1915: Patient watching TV in bed at start of shift. Alert and oriented x4. Pleasant and cooperative. Reported "itching all over". Macular papular rash observed to trunk, upper and lower extremities. Denies pain or discomfort. Topical Benadryl ointment applied. Patient reports ointment was helpful in reducing itching. Dressing intact to abdomen. SCDs to BLE in place. Trace pitting edema observed. Took HS medication whole without difficulty. Patient was able to walk to bathroom with walker and SBA x1. Patient hopeful to return to home tomorrow. Patient able to fall asleep without difficulty and is resting quietly without issue.
[2020-08-28 04:21] VITALS: BP 135/57
[2020-08-28 07:09] LABS: HEMATOCRIT 37.2 % (37.0-47.0); HEMOGLOBIN 12.3 gm/dL (12.0-15.0); MCH 32.8 pg (26.0-34.0); MCHC 33.1 g/dL (28.0-37.0); MCV 99.3 fL (80.0-100.0); RBC 3.75 mil/uL (4.20-5.00); RDW 14.7 % (10.5-14.5); WBC 8.5 thou/uL (4.0-11.0)
[2020-08-28 07:10] VITALS: BP 144/63
[2020-08-28] MEDS ORDERED: OXYCODONE HCL 55 MG PO (09:51)
--- NOTE | 2020-08-28 10:14 | NUR ---
Assess for length of stay. Admit for laparoscopic colostomy reversal. Hx diveriticular disease with rupture and emergent surgery 07/2019. Doing well with diet advance and wts are stable. Likely home soon. Low nutrition risk
[2020-08-28] MEDS ORDERED: COLACE 100 MG100 MG PO (11:11)
[2020-08-28] MEDS ORDERED: TYLENOL325 MG PO (11:11)
[2020-08-28 14:16] LABS: HEMATOCRIT 32.4 % (37.0-47.0); HEMOGLOBIN 10.9 gm/dL (12.0-15.0)
[2020-08-28 15:39] VITALS: BP 144/63
--- NOTE | 2020-08-28 16:01 | NUR ---
Assumed care of pt at 0700. Pt a&ox4. Denies pain. Abd dressing c/d/i. Up with BSA and walker/gait-belt. Dr Osborn was called with lab results and cleared for discharge.
== END 2020-08-28 16:21 | disposition home or self-care (01) | DRG 329 ==
LOC: 4S 09:59 → TBA 09:59 → PRE 11:24 → 4S 16:28
PROVIDERS: Hospitalist; Internal Medicine Nephrology; Nurse Practitioner Family; ADMIT Surgery; ATTEND Surgery
DX: Z43.3 Encounter for attention to colostomy (principal); E43 Unspecified severe protein-calorie malnutrition; N17.9 Acute kidney failure, unspecified; N18.5 Chronic kidney disease, stage 5; Q87.81 Alport syndrome; E03.9 Hypothyroidism, unspecified; E78.5 Hyperlipidemia, unspecified; M10.9 Gout, unspecified; M19.90 Unspecified osteoarthritis, unspecified site; I77.0 Arteriovenous fistula, acquired; I12.9 Hypertensive chronic kidney disease with stage 1 through stage 4 chronic kidney disease, or unspecified chronic kidney disease; G40.409 Other generalized epilepsy and epileptic syndromes, not intractable, without status epilepticus; K43.2 Incisional hernia without obstruction or gangrene; G62.9 Polyneuropathy, unspecified; F32.9 Major depressive disorder, single episode, unspecified; F41.9 Anxiety disorder, unspecified; I25.10 Atherosclerotic heart disease of native coronary artery without angina pectoris; Z98.42 Cataract extraction status, left eye; Z98.41 Cataract extraction status, right eye; Z88.6 Allergy status to analgesic agent; Z88.1 Allergy status to other antibiotic agents; Z88.7 Allergy status to serum and vaccine; Z90.710 Acquired absence of both cervix and uterus; Z85.42 Personal history of malignant neoplasm of other parts of uterus; Z86.73 Personal history of transient ischemic attack (TIA), and cerebral infarction without residual deficits; Z82.49 Family history of ischemic heart disease and other diseases of the circulatory system
CPT/HCPCS: 10102; 50010; 50101; 50386; 50455; 50555; 51398; 51489; 51712; 52265; 53307; 53310; 54118; 56525; 56526; 56529; 56805; 57092; 62110; 62900; 70005

== ENCOUNTER 2020-09-20 12:14 | Emergency (ER) | payer OTHER, MEDICARE ==
[~2020-09-20] VITALS: Ht 162.6 cm; Wt 70.3 kg
[~2020-09-20 12:14] MED LIST changes: +COLACE 100 MG100 MG PO; +OXYCODONE HCL 55 MG PO
[2020-09-20 13:08] LABS: HEMATOCRIT 33.1 % (37.0-47.0); MCH 31.9 pg (26.0-34.0); MCHC 33.2 g/dL (28.0-37.0); RBC 3.45 mil/uL (4.20-5.00)
[2020-09-20 13:16] LABS: CALCIUM 9.2 mg/dL (8.5-10.1); CREATININE 3.4 mg/dL (0.6-1.0)
[2020-09-20 13:19] LABS: URIC ACID* 7.5 mg/dL (2.6-6.0)
[2020-09-20 13:24] LABS: APTT 26.6 Seconds (24.5-32.8); D-DIMER 3.14 ug/mLFEU (0.19-0.50); PROTIME 10.6 Seconds (9.3-11.4)
[2020-09-20] MEDS ORDERED: NORCO 5-325 TA1 EAC2 PO (14:27)
[2020-09-20] MEDS ORDERED: PREDNISONE 20 M20 MG PO (14:27)
[2020-09-20 14:52] VITALS: BP 156/91
== END 2020-09-20 14:52 | disposition home or self-care (01) ==
LOC: ER 12:14
PROVIDERS: Emergency Medicine
DX: M77.8 Other enthesopathies, not elsewhere classified (principal); E79.0 Hyperuricemia without signs of inflammatory arthritis and tophaceous disease; N18.5 Chronic kidney disease, stage 5; I25.10 Atherosclerotic heart disease of native coronary artery without angina pectoris; E03.9 Hypothyroidism, unspecified; E78.5 Hyperlipidemia, unspecified; Z90.710 Acquired absence of both cervix and uterus; Z79.82 Long term (current) use of aspirin; Z79.899 Other long term (current) drug therapy; Z88.0 Allergy status to penicillin; Z88.5 Allergy status to narcotic agent; Z88.1 Allergy status to other antibiotic agents; Z88.8 Allergy status to other drugs, medicaments and biological substances

== ENCOUNTER 2021-03-05 18:36 | Emergency (ER) | payer OTHER, MEDICARE ==
[~2021-03-05] VITALS: Ht 162.6 cm; Wt 70.3 kg
[~2021-03-05 18:36] MED LIST changes: +NORCO 5-325 TA1 EAC2 PO
[2021-03-05 19:41] LABS: ABSOLUTE NEUTROPHILS 4.3 thou/uL (1.4-8.2); BASOPHILS 0.4 % (0.0-2.0); EOSINOPHILS 0.5 % (0.0-3.0); LYMPHOCYTES 16.4 % (24.0-44.0); MCH 31.9 pg (26.0-34.0); MCHC 33.4 g/dL (28.0-37.0); MCV 95.6 fL (80.0-100.0); MONOCYTES 10.2 % (1.0-8.0); PLATELET COUNT 140 thou/uL (150-400); POLYS 72.5 % (36.0-66.0); RBC 3.45 mil/uL (4.20-5.00); WBC 5.9 thou/uL (4.0-11.0)
[2021-03-05 19:49] LABS: CALCIUM 9.4 mg/dL (8.5-10.1); CREATININE 3.2 mg/dL (0.6-1.0); POTASSIUM 4.7 mmol/L (3.5-5.1)
[2021-03-05 20:06] LABS: ALBUMIN 3.2 g/dL (3.4-5.0); TOTAL BILIRUBIN 0.5 mg/dL (0.2-1.0); TOTAL PROTEIN 7.1 g/dL (6.4-8.2)
[2021-03-05 20:46] LABS: CSF GLUCOSE 41 mg/dL (40-70)
[2021-03-05 21:28] LABS: VOLUME 4 ml
[2021-03-05 21:29] LABS: CSF CLARITY CLEAR; CSF COLOR COLORLESS; CSF RBC 1.11 /mm3; CSF WBC 1.11 /mm3 (0-10)
[2021-03-05] MEDS ORDERED: MEDROLDOSEPACK PO (21:55)
[2021-03-05] MEDS ORDERED: FLEXERIL PO (21:55)
[2021-03-05] MEDS ORDERED: NORCO5 PO (21:55)
[2021-03-05 22:05] VITALS: BP 156/52
== END 2021-03-05 22:13 | disposition home or self-care (01) ==
LOC: ER 18:36
PROVIDERS: Emergency Medicine
DX: M54.2 Cervicalgia (principal); N18.5 Chronic kidney disease, stage 5; M43.6 Torticollis; M79.641 Pain in right hand; M79.631 Pain in right forearm; E03.9 Hypothyroidism, unspecified; E78.5 Hyperlipidemia, unspecified; M19.90 Unspecified osteoarthritis, unspecified site; I25.10 Atherosclerotic heart disease of native coronary artery without angina pectoris; G62.9 Polyneuropathy, unspecified; Z88.0 Allergy status to penicillin; Z88.8 Allergy status to other drugs, medicaments and biological substances; Z85.42 Personal history of malignant neoplasm of other parts of uterus; Z90.711 Acquired absence of uterus with remaining cervical stump; Z98.890 Other specified postprocedural states; Z79.899 Other long term (current) drug therapy; Z79.82 Long term (current) use of aspirin; Z88.5 Allergy status to narcotic agent